=== PATIENT | female | born 1950 | race Caucasian/White ===

== ENCOUNTER → 2019-10-03 13:54 | Outpatient (CLI) | payer MEDICARE, MEDICAID, SELFPAY ==
[2019-10-04 14:02] LABS: COVID19 Sendout Not Detected (Not Detect)
== END ==
PROVIDERS: PCP Family Medicine; Visit Provider Physician Assistant
DX: Z01.812 Encounter for preprocedural laboratory examination (principal)
CPT/HCPCS: 87635

== ENCOUNTER 2019-10-06 07:49 | Inpatient (IN) | payer MEDICARE, MEDICAID, SELFPAY ==
[2019-10-06] VITALS (14 sets, daily range): BP systolic 129–157; BP diastolic 64–95; PULSE 69–92; RESP 8–22; TEMP 35.7–37.1; O2SAT 92–98
--- NOTE | 2019-10-06 | DI.RAD.S_ITS ---
PROCEDURE: XR KNEE RT 1TO2V INDICATIONS: TOTAL RIGHT KNEE TECHNIQUE: 2 view(s) of the knee acquired. COMPARISON: [facility] Jackson, XR KNEE ARTHRITIC SERIES BI, 09/02/2019, 14:53. FINDINGS: Bones: Patient is status post knee joint arthroplasty. Hardware components are in expected positions. Visualized bony structures are intact. Soft tissues: Overlying postoperative changes are noted. IMPRESSION: Postoperative changes as above. Dictated by: Ermelinda Carrasco M.D. on 10/06/2019 at 17:41 Approved by: Ermelinda Carrasco M.D. on 10/06/2019 at 17:42
--- NOTE | 2019-10-06 | DI.RAD.S_ITS ---
PROCEDURE: XR KNEE LT 1TO2V INDICATIONS: LEFT TOTAL KNEE TECHNIQUE: Left view(s) of the knee acquired. COMPARISON: [facility] HEATHER Jackson, XR KNEE ARTHRITIC SERIES BI, 09/02/2019, 14:53. FINDINGS: Bones: Patient is status post knee joint arthroplasty. Hardware components are in expected positions. Visualized bony structures are intact. Soft tissues: Overlying postoperative changes are noted. IMPRESSION: Postoperative changes as above. Dictated by: Ermelinda Carrasco M.D. on 10/06/2019 at 17:41 Approved by: Ermelinda Carrasco M.D. on 10/06/2019 at 17:41
[2019-10-06] MEDS: CELECOXIB 200 MG CAPSULE PO (08:51)
[2019-10-06] MEDS: ACETAMINOPHEN 325 MG TABLET 975 MG PO (08:51)
[2019-10-06] MEDS: LACTATED RINGERS 1,000 ML 42 ML IV ×2 (08:52→12:48)
--- NOTE | 2019-10-06 09:47 | PM.PREOP ---
Pre-operative Note COVID-19 COVID-19 status: Negative Result date/Date tested (Pos, Neg/Pending): 10/03/19 Interval Note History & Physical reviewed/Exam performed by Physician: Yes Changes to H&P: No
--- NOTE | 2019-10-06 09:47 | PM.OP.1 ---
Operative Date/Time/Diagnoses Date of procedure: 10/06/19 Time of procedure: 13:00 Pre-op diagnosis: Bilateral knee osteoarthritis Post-op diagnosis: same Procedure & Clinicians Procedure: Bilateral total knee arthroplasty Same procedure as scheduled: Yes Indications: The patient presents today for total knee arthroplasty after failure of conservative treatment. The nature of the procedure including the risks and benefits, alternatives, postoperative course and expected outcome were discussed and all questions answered. Consent was obtained. Operative site confirmed and marked. Surgeon: Shon Johnston Guest Services Associate: Krishna Vieira Operative Notes Findings: There is approximately 10 degree flexion contracture in both knees prior to surgery. The right knee femoral cut was made at +2. The tibial cut was made approximately 11 mm off the least affected lateral side. The knee balanced nicely with routine osteophyte and soft tissue exposure. A 10 mm polyethylene spacer was utilized. Overall mediolateral balance and patellar tracking was excellent. The left knee femoral cut was also made at +2. Tibial cut was made at just under Che mm off the least affected lateral side. This knee also balanced nicely with routine osteophyte removal and soft tissue exposure. A 10 mm polyethylene spacer was utilized. Overall mediolateral balance and patellar tracking was excellent. Closure Type: primary Specimen(s): none sent Prosthetic devices, grafts, tissues, transplants, or devices: [employer] BCS: Right: 5 femoral component, 4 tibial component, 10 mm BCS polyethylene tray and 32 x 9 mm round patella. Left: 5 femoral component, 3 tibial component, 10 mm BCS polyethylene tray and 32 x 9 mm round patella Applied: implant(s) Estimated Blood Loss (mL): 10 Blood products transfused: none Tourniquet time (min): 48 Procedure in detail: The patient was taken to the operative suite and placed under anesthesia. The patient was given prophylactic antibiotics prior to surgery. The patient was also given tranexamic acid, 1 g, just prior to surgery for postoperative hemostasis. The lateral knee was prepped and the joint injected with 20 mL of 1% Lidocaine with epinephrine. The right knee was then prepped and draped in usual sterile fashion. The leg was exsanguinated with an Esmarch dressing and the tourniquet raised to 250 torr. A 15 cm anterior incision was made. Next a medial trivector arthrotomy was made. The extensor mechanism was marked to ensure accurate repair. Initial exposing dissection was carried out medially and laterally. The knee was then flexed and the intramedullary femoral guide juan f placed. The distal femoral cut was made in 6? of valgus at the +2 position. The femoral size was measured and the appropriate cutting block was then placed and the anterior, posterior and chamfer cuts made. The intramedullary tibial alignment juan f was then placed. The guide was set to remove approximately 11 mm from the less affected lateral side. The proximal tibial cut was then made with an oscillating saw. All meniscus and bony debris was then removed. Posterior femoral osteophytes removed with a curved osteotome. Flexion extension gaps were checked. No specific balancing was required other than routine exposure and removal of osteophytes. The soft tissues were then injected with a combination of 20 mL of half percent Marcaine with epinephrine and 20 mL of Exparel. The trial components were then placed. The knee was then extended and the patellar thickness was measured and a cut made removing approximately 9 mm of bone. The patella was then sized and drilled. Some excess lateral bone was excised and the patellofemoral ligament released. The knee went into full extension and flexion beyond 130?. There was excellent medial-lateral balance throughout motion. Patellar tracking was excellent. The trial components were removed and the knee was cleansed with Pulsavac irrigation and dried. The final components were cemented with high viscosity vacuum mixed bone cement with antibiotics. The joint was filled with a dilute Betadine solution. The knee was held in extension and the patellar clamped until the cement was adequately cured. The knee was then irrigated. The extensor mechanism was closed with 5 interrupted #1 Vicryl sutures and a running Quill suture at approximately 90 degrees of flexion. The joint was then injected with a combination of 1 g of tranexamic acid and 20 mL of quarter percent Marcaine with epinephrine. The subcutaneous tissue was closed with 2 0 Vicryl. The skin was closed with the Zip-Close device.. An Aquacel dressing and Jose wrap were then applied. The identical procedure was then carried out on the left knee. A +2 femoral cut was made on the femur. Slightly less than 11 mm was cut off the least affected tibial side. The knee balanced well with excellent patellar tracking with a 10 mm polyethylene spacer. The patient tolerated the procedure well and was returned to recovery room in good condition. Complications: none Post-operative Condition: stable Disposition: PACU Plan for aftercare: [facility] Protocol.
[2019-10-06] MEDS: CEFAZOLIN 2 GM/100 ML FROZ.PIGGY IV ×2 (10:43→19:08)
[2019-10-06] MEDS: TRANEXAMIC ACID 1,000 MG VIAL 1000 MG IV (11:00)
--- NOTE | 2019-10-06 11:19 | SUR.OPER ---
Supine on padded OR bed. Pillow under head, arms secured on padded arm boards <90 degree abduction. Safety belt across torso. Bilateral legs prepped in field in Jemal positioner. Foam padded brace at thigh of operative leg bilateral .
[2019-10-06] MEDS: BUPIVACAINE 0.25% W/ EPI (PF) 40 ML, BUPIVACAINE LIPOSOME 266 MG, SODIUM CHLORIDE 0.9% ... INJ (11:33)
[2019-10-06] MEDS: BUPIVACAINE 0.25% W/ EPI (PF) 20 ML, TRANEXAMIC ACID 1,000 MG, SODIUM CHLORIDE 0.9% 10 ML INJ (11:35)
[2019-10-06] MEDS: LIDOCAINE 1% W/EPI 20 ML INJ (11:37)
--- NOTE | 2019-10-06 13:46 | SUR.PHASEI ---
1343 Attempted to call report to the floor, patient stable, ready for transfer. Room not available, Acute care will notify PACU when it is ready.
--- NOTE | 2019-10-06 13:52 | SUR.PHASEI ---
1354 Reported to to Jodie Price RN. Pt awake, oriented, stable. Tolerating PO well. Denies pain, states that she feels pressure. Informed her that she has ric wraps on her legs. Very pleasant and appreciative.
[2019-10-06] MEDS: CYCLOBENZAPRINE 10 MG TABLET 20 MG PO (15:05)
[2019-10-06] MEDS: HYDROCODONE/ACET 5/325 TABLET 2 TAB PO ×3 (15:06→23:33)
[2019-10-06] MEDS: HYDROMORPHONE 0.5 MG INJ 0.2 MG IV (16:20)
[2019-10-06] MEDS: IBUPROFEN 400 MG TABLET PO (16:20)
[2019-10-06] MEDS: LACTATED RINGERS 1,000 ML 100 ML IV (16:27)
[2019-10-06] MEDS: HYDROMORPHONE 2 MG TABLET PO ×2 (17:49→21:03)
[2019-10-06] MEDS: PANTOPRAZOLE 20 MG TABLET PO (17:49)
[2019-10-06] MEDS: ASPIRIN EC 81 MG TABLET PO (21:03)
[2019-10-06] MEDS: TRAZODONE 100 MG TABLET 200 MG PO (21:03)
[2019-10-06] MEDS: DOCUSATE 100 MG CAPSULE PO (21:04)
[2019-10-07] MEDS: IBUPROFEN 400 MG TABLET PO ×6 (00:53→21:46)
[2019-10-07] MEDS: HYDROMORPHONE 2 MG TABLET PO ×3 (00:54→10:15)
[2019-10-07] MEDS: CEFAZOLIN 2 GM/100 ML FROZ.PIGGY IV (02:42)
[2019-10-07] MEDS: HYDROCODONE/ACET 5/325 TABLET 2 TAB PO (03:19)
[2019-10-07 03:20] VITALS: BP 158/91; PULSE 84; RESP 18; TEMP 37.4; O2SAT 96
[2019-10-07 05:38] LABS: Hematocrit 32.7 % (36-46)
[2019-10-07] MEDS: LEVOTHYROXINE 50 MCG TABLET PO (05:59)
[2019-10-07] MEDS: LEVOTHYROXINE 100 MCG TABLET 200 MCG PO (05:59)
[2019-10-07 08:00] VITALS: BP 135/62; PULSE 82; RESP 16; TEMP 37.1; O2SAT 94
[2019-10-07] MEDS: CYCLOBENZAPRINE 10 MG TABLET 20 MG PO (08:34)
[2019-10-07] MEDS: ASPIRIN EC 81 MG TABLET PO ×2 (08:36→20:32)
[2019-10-07] MEDS: HYDROCODONE/ACET 5/325 TABLET 1 TAB PO (08:36)
[2019-10-07] MEDS: PANTOPRAZOLE 20 MG TABLET PO (08:37)
[2019-10-07] MEDS: DOCUSATE 100 MG CAPSULE PO ×2 (08:37→20:32)
--- NOTE | 2019-10-07 10:44 | PM.PNPO.1 ---
Subjective Subjective Date Patient Seen: 10/07/19 Time Patient Seen: 10:44 Interval history: Patient's pain is [id number] when resting. Patient has severe right-sided low back pain radiating to the right posterior thigh within the right lower extremity movement. Patient has been up twice to bedside chair yesterday. Patient has not been up yet today. Patient refuses to move out of bed today. Denies fever chills. No nausea vomiting. Patient plans on having her daughter assist her home however she has several stairs to her bedroom. Exam Vital Signs (past 8 hours): - 10/07/19 03:20 10/07/19 08:00 Temperature 99.3 F 98.8 F Pulse Rate 84 82 Respiratory Rate 18 16 Blood Pressure 158/91 H 135/62 Pulse Oximetry 96 94 Oxygen Delivery Method Room Air Oxygen Flow Rate 0 Narrative Exam Narrative: 69-year-old female resting comfortably in bed in no apparent distress. Left knee dressing is clean, dry and intact. Right knee dressing shows some drainage with what appears to be a dime-size dried blood on the distal aspect of the Jose dressing. The Jose is removed entirely and the distal aspect of the dressing is moist but adhering well. Sensation grossly intact to light touch bilateral lower extremities. Motor functions intact bilateral lower extremities. Both legs are warm and dry. Objective Labs Result Diagrams: 10/07/19 05:10 Labs: Laboratory Results - last 24 hr 10/07/19 05:10 Hgb 11.0 L Hct 32.7 L Assessment & Plan Post-op Postoperative Procedures: Procedures Operation Date: 10/06/19 09:45 Actual Procedures Side Surgeon p Total Knee Arthroplasty Bilateral Shon Johnston MD Patient progressing as expected status post bilateral total knee arthroplasties. After a long discussion patient is in agreement with mobilizing with physical therapy this afternoon if her pain is better controlled. The nurse has already talked with Dr. Johnston about increasing her pain meds. The orders have been completed to increase her pain meds. Possible home 1-2 days. Quality VTE Deep Vein Thrombosis/Pulmonary Embolism Present on Admission: No
[2019-10-07 11:00] VITALS: BP 132/63; PULSE 81; RESP 16; TEMP 37; O2SAT 96
[2019-10-07] MEDS: hydrOXYzine pamoate 25 MG CAPSULE 50 MG PO ×3 (11:01→20:33)
--- NOTE | 2019-10-07 11:34 | PT.IIE ---
Current Diagnoses Unilateral primary osteoarthritis, right knee (10/06/19) Unilateral primary osteoarthritis, left knee (10/06/19) Surgery Performed Operation Date: 10/06/19 09:45 Actual Procedures p Total Knee Arthroplasty(Bilateral) - Shon Johnston MD Surgical History (Last Updated 09/28/19 @ 14:28 by Natalie Dent RN) History of bilateral tubal ligation (Acute) History of reversal of tubal ligation (Acute) Hx of appendectomy (Acute) Hx of bilateral oophorectomy (Acute) Hx of breast augmentation (Acute) Hx of hernia repair (Acute) Hx of knee surgery (Acute) Hx of repair of right rotator cuff (Acute) Medical History (Last Updated 09/28/19 @ 14:28 by Natalie Dent RN) Anxiety (Acute) Arthritis (Acute) Chronic vertigo (Acute) Edema (Acute) Fibromyalgia (Acute) GERD (gastroesophageal reflux disease) (Acute) HLD (hyperlipidemia) (Acute) Hx of ectopic (Acute) Hypothyroid (Acute) Meniere's disease (Acute) Numbness (Acute) Osteoarthritis (Acute) Sleep apnea (Acute) TMJ (dislocation of temporomandibular joint) (Acute) Physical Therapy Inpatient Evaluation/Re-Eval M1 PT/OT-IP Prior Functional Status Start: 10/07/19 08:52 Freq: NEEDED Status: Active Protocol: Document 10/07/19 11:05 AW (Rec: 10/07/19 11:34 AW [email or web address]) Medical Review Prior Functional Status Medical History Reviewed Yes Communication WNL. Pt is an effective verbal communicator. Mobility and Gait Pt is typically independent with mobility but has used a hurry cane for the last 2 weeks. This change was precipitated by 3 falls within 1 week. Pt has history of Meniere's disease and fibromyalgia. Activities of Daily Living and IADL's IND per pt, including driving. Social History Household Members spouse Living Arrangements Apartment/Condo Number of Floors (Floors) Two Floors Number of Stairs To Enter/Railing? 33 stairs to second level apartment via outdoor staircase. There are wide bilateral rails. No elevator. Pt states she has arranged for her downstairs neighbors to carry her up the stairs at discharge where she will stay until able to manage stairs. 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 Her nephew and a few roommates live in a downstairs apartment and her , Edd, is currently living there as well. Pt's daughter, Felicia, is planning to stay with the pt at discharge. Pt has an adjustable bed. M2 PT-IP Current Condition Start: 10/07/19 08:52 Freq: NEEDED Status: Active Protocol: Document 10/07/19 11:05 AW (Rec: 10/07/19 11:34 AW [email or web address]) Physical Therapy Current Condition Current Condition Evaluation Date 10/07/19 Treatment Diagnosis B TKA; difficulty in walking Onset Date 10/06/19 Weight Bearing Status Weight Bearing Status Weight Bear as Tolerated M3 PT-IP Subjective Start: 10/07/19 08:52 Freq: NEEDED Status: Active Protocol: Document 10/07/19 11:05 AW (Rec: 10/07/19 11:34 AW [email or web address]) Subjective Physical Therapy Visit Type Type Initial Evaluation Visit Start Time 09:08 Visit Stop Time 09:47 Total Visit Minutes 39 Physical Therapy Visit Comments Patient Comments I'm not getting out of this bed today. Patient Goals Pt plans Therapy Pain Assessment Pain When Pain Assessed At Rest Pain Present Pain Present Pain Reported Location Bilateral Leg Intensity 8 Scale Used 8/10 at rest; 10/10 with bed mobility Pain Management Techniques Elevation,Re-positioning, Timing of Activity with Medications M4 PT-IP Mobility and Gait Start: 10/07/19 08:52 Freq: NEEDED Status: Active Protocol: Document 10/07/19 11:05 AW (Rec: 10/07/19 11:34 AW [email or web address]) PT-Bed Mobility Assessment Rolling Type of Rolling Roll to Right,Roll to Left Level of Assist Moderate Assistance,1 Person Assistance PT-Transfer Assessment Comments Mobility Comments Pt refused all mobility. She allowed this PT to remove the pillows from under her legs but cried out in pain with even light touch, exhibiting hyperesthesia B LE. She complained of back pain and R LE posterior thigh pain she described as sciatica. She firmly stated she would not move out of the bed today. Pt was repositioned with pillows running lengthwise under her calves and lower bed flattened to promote knee extension. RN and PA notified of pt's refusal. Gait Assessment Comments Gait Comments Not assessed. Pt refused. Stair Climbing Assessment Comments Stair Climbing Comments Not assessed. PT-Balance Assessment Comments Other Balance Tests/Deviations/Treatment Unable to assess. : M5 PT-IP Objective Assessments Start: 10/07/19 08:52 Freq: NEEDED Status: Active Protocol: Document 10/07/19 11:05 AW (Rec: 10/07/19 11:34 AW [email or web address]) Orientation Orientation/Cognition Level of Alertness Alert Orientation Name,Day of Week,Place, Situation Language Function Ability No Deficits Noted Safety Awareness Decreased Safety Awareness Comments Pt is verbose and prone to tangential thought/speech. Gross Range of Motion Upper Extremity ROM Assessment Within Functional Limits Lower Extremity ROM Assessment Bilaterally Impaired Impairments Pt lacking ~10 degrees R and ~ 5 degrees L knee extension actively. Strength Lower Extremity Strength Assessment Bilaterally Impaired Hip 3-/5 Ankle 4-/5 Sensation Assessment Sensation Gross Sensation Right LE Impaired,Left LE Impaired Sensation Description Hyperesthesia,Burning Comments Sensation Comments Pt exhibits hyperesthesia with light touch to B LE and reports burning pain posterior R thigh. M6 PT-IP Treatment Start: 10/07/19 08:52 Freq: NEEDED Status: Active Protocol: Document 10/07/19 11:05 AW (Rec: 10/07/19 11:34 AW [email or web address]) Physical Therapy Treatment Exercises Exercises Ankle Pumps,Quad Sets,Heel Slides Education Education Provided Precautions,Weight Bearing Status,Post-Op Packet,Safety Other Treatments Other Treatment Performed Pt able to perform ankle pumps independently, quad sets on L LE only, and heel slides passively with minimal ROM on L LE only. Provided extensive education on risks of immobility. M7 PT-IP Assessment and Plan Start: 10/07/19 08:52 Freq: NEEDED Status: Active Protocol: Document 10/07/19 11:05 AW (Rec: 10/07/19 11:34 AW [email or web address]) PT Summary Assessment and Plan Potential Rehabilitation Potential Poor Status of Condition at Evaluation Evolving Summary Impairments Pain,ROM,Strength,Balance, Sensation,Bed Mobility, Transfers,Gait,Activity Tolerance Assessment Summary Jennifer is a 69 yo woman seen for PT evaluation on POD1 following bilateral TKA. She is planning to have lumbar surgery next month. At baseline, pt has been using a hurry cane for household and short distance community ambulation due to increasing knee pain. On evaluation, pt required mod assist of one for bed mobility and refused to mobilize further with complaints of intense knee, back, and posterior thigh pain . She apparently transferred to the chair with nursing yesterday but states her pain is too great at this time. PT informed RN and PA who are working to encourage the pt to mobilize this PM. Will coordinate with nursing for optimal pain management prior to next session. Pt states she has arranged to be carried up 33 stairs to her apartment but has no plans for follow up appointments or outpatient PT which has not been scheduled. Her daughter, Felicia, is planning to stay with her to assist if pt can safely go home. Pt will require further assessment for discharge recommendation. Goals Bed Mobility Goal Contact Guard Assistance Transfer Goal Contact Guard Assistance,Front Wheeled Walker Gait Goal Contact Guard Assistance,Front Wheel Walker Gait Distance 150 Other Goals - pt will demonstrate safe plan for stair management (33 steps with wide B rails) Days to Meet Goals 10 Frequency of Treatment Frequency Of Treatment Twice a Day Treatment Plan Physical Therapy Treatment Plan Bed Mobility Training,Transfer Training,Gait Training, Therapeutic Exercise,Balance Retraining,Post Op Education, Discharge Planning,Hot or Cold Pack,Neuromuscular Re-ed Other Recommendations and Next Treatment bed mobility, transfers, gait Focus training with FWW Recommendations To Nursing Amount of Assist Needed PT/OT Assist Only Discharge Recommendations PT Discharge Recommendations Home with 24/7 Assist,Home Health Other Discharge Recommendations Home with 24/7 assist for mobility and HH vs OP PT depending on progress Equipment Needed for Home Before FWW, shower chair Discharge
[2019-10-07] MEDS: HYDROMORPHONE 4 MG TABLET PO ×3 (12:47→20:32)
--- NOTE | 2019-10-07 12:57 | CM.DANOTE ---
DCP Assessment: EMR reviewed: Patient is a 69 yr old female who had bilateral TKA done preformed by Dr. Johnston. Patients PCP is Dr Oliver. Cm/RN met with patient at the bedside and explained role. Patient was alert and oriented x3. Patient states she currently lives in a second story apartment with 33 stairs to get into the apartment. When asked patient states she plans on having her exhusband and adult nephew who live in the apartment below her help carry her up the stairs to get into her apartment. Cm/RN asked if patient would be open to SNF at D/C and patient stated she is not okay with that and wants to go home. CM/Rn asked about HH and patient stated that she was okay with that. CM will get F2F signed and clinicals [facility]ed [facility] to [facility] for [facility] to review for HH services. patient wasn't able to get up and ambulate today with PT do to pain but PT will attempt again this afternoon. Patients daughter is coming in to stay with patient on Friday for a week to help with her recovery. Patient states she is Independent with all ADL's and drives [place] [employer]. I: Medicare and medicaid Plan: [facility] when medically [facility]. F2F and clinicals were faxed to [facility] will need D/C summary faxed. Mary Jacobo RN ' Discharge Planning/Care Management CM Discharge Assessment Start: 10/07/19 12:53 Freq: Status: Active Protocol: Document 10/07/19 12:53 HS (Rec: 10/07/19 12:57 HS [id number]) Discharge Planning Assessment Assigned Data Steward Mary Jacobo RN DPOA/Assigned Designee Name Edd Arevalo (ex ) Contact Information [phone] Advance Directives? Yes History Provided By Patient,Medical Record Has Patient been admitted in last 30 No days? Prior Living Arrangements Apartment/Condo Household Members none Comment But does have her ex who lives down stairs and her adult nephew who lives down stairs as well who will be helping patient during recovery. Type of transporation used prior to Drives own vehicle admit Independent with ADL's Yes Is patient alert and oriented? Yes DME Already Rented / Owned FWW / Walker,Cane Patient/Family Preference Home with Home Health Discharge Plan Home with Home Health Community Services Physical Therapy,Occupational Therapy Referrals Initiated Home Health If patient plan is home with home health Yes : Has signed face to face form been completed? Medicare Choice List Provided Yes SNF/HH Preference no preference so weekly calandar chose of [facility] was used. Contact Name/Phone [facility] Whiteboard Updated in Patient Room with Yes name and ext. # of Data Steward Review Status In Process Next Review Type Continued Stay Review Pre-Anesthesia Assessment Start: 09/28/19 13:29 Freq: Status: Active Protocol: Document 09/28/19 13:29 CAB (Rec: 09/28/19 14:58 CAB [id number]) Pre-Anesthesia Assessment Patient Information Reviewed Via Phone Assessment Assessment Completed With Patient Comment Labs/EKG done per pt, needs to schedule COVID screen Primary Care Provider Blanca Oliver Seen Specialist in Last 12 Months Yes Specialist Seen Orthopedist Primary Language Malaysian Stock Holder Required No Height 162.56 cm Weight 79.379 kg Body Mass Index (BMI) 30.0 Hearing Ability Normal Visual Assist Glasses Dentition Type Teeth, Natural Present Barriers to Learning None Hx Anesthesia Reactions Yes: I wake up during surgeries Hx Family Anesthesia Reaction No Hx Malignant Hyperthermia No Hx Blood Transfusions No Anesthesia Review Requested No alcohol intake current alcohol intake frequency a few times a month Smoking Status Never smoker Substance Use Type marijuana Comment States she smokes a lot of marijuana. Advised not to smoke 24hrs prior Pain Present Pain Reported Musculoskeletal Symptoms Abnormal Gait,Back Pain, Difficulty Walking,Joint Pain History of Falling (Recent or History of Yes ) Patient is completely paralyzed or No completely immobile Mental Status Oriented to own ability Is patient on oxygen? 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 No Cardiac Clearance Received Not Applicable Diet Type At Home Ketogenic dysphagia No Gastrointestinal Symptoms Reflux Urinary Catheter Present No Hx Urinary Self Catheterization No Diabetes No Patient No Lactating No Hx Drug Resistant Organism No Presence of External or Internal Medical No Devices Have you had any close contact with No someone diagnosed with COVID-19? Marital Status Lives With spouse Prior Living Arrangements Apartment/Condo Number of Floors (Floors) One Floor Support System Spouse Does the Patient Have Assistance After Yes Surgery Patient Discharge Plan Description Return Home Comment Pt advised 2-3 day length of stay per surgeon Feels Safe in Current Environment Yes Been Physically Hurt or Threatened By a No Person in Current Environment Do you have thoughts of harming yourself None or others? Are you currently considering suicide? No Do you have a plan to hurt yourself or No Plan others? Do You Have Any Spiritual Beliefs That No May Affect Your HC Choices? Do You Have Any Cultural Practices That No May Affect Your HC Choices? Who Can We Speak to About Patient's Care Family, friends Identifying Code for Release of Patient Declines to issue Information Health Care Proxy/Next of Kin Felicia (daughter) Edd (Ex- ) Health Care Proxy Phone Number Felicia: [phone] [facility]: [phone] Emergency Contact Name Felicia (daughter) Edd (Ex- ) Emergency Contact Phone Number Felicia: [phone] Edd: Advance Directives? No Power of Benefits Consulting Analyst No PAC Instructions Do not shave/clip surgical site,Durable medical equipment ,Medications to take/avoid, Nasal antibiotic,No ETOH/ petroleum product on skin DOS, NPO,Pre-surgical wash,Sturdy shoes/comfortable clothes,Do not bring valuables and remove jewelry
--- NOTE | 2019-10-07 14:52 | PT.IPTN ---
Current Diagnoses Unilateral primary osteoarthritis, right knee (10/06/19) Unilateral primary osteoarthritis, left knee (10/06/19) Surgery Performed Operation Date: 10/06/19 09:45 Actual Procedures p Total Knee Arthroplasty(Bilateral) - Shon Johnston MD Physical Therapy Treatment Note M2 PT-IP Current Condition Start: 10/07/19 08:52 Freq: NEEDED Status: Active Protocol: Document 10/07/19 11:05 AW (Rec: 10/07/19 11:34 AW [email or web address]) Physical Therapy Current Condition Current Condition Evaluation Date 10/07/19 Treatment Diagnosis B TKA; difficulty in walking Onset Date 10/06/19 Weight Bearing Status Weight Bearing Status Weight Bear as Tolerated M3 PT-IP Subjective Start: 10/07/19 08:52 Freq: NEEDED Status: Active Protocol: Document 10/07/19 14:25 AW (Rec: 10/07/19 14:51 AW [email or web address]) Subjective Physical Therapy Visit Type Type Treatment Note Visit Start Time 13:48 Visit Stop Time 14:15 Total Visit Minutes 27 Physical Therapy Visit Comments Patient Comments I've been keeping my legs flat like you told me to. Therapy Pain Assessment Pain When Pain Assessed At Rest Pain Present Pain Present Pain Reported Location Bilateral Leg Scale Used pt unwilling to quantify Pain Management Techniques Re-positioning,Timing of Activity with Medications M4 PT-IP Mobility and Gait Start: 10/07/19 08:52 Freq: NEEDED Status: Active Protocol: Document 10/07/19 14:25 AW (Rec: 10/07/19 14:51 AW [email or web address]) PT-Bed Mobility Assessment Supine to Sit Supine to Sit Moderate Assistance,1 Person Assistance,Head of Bed Elevated Scooting Scooting to Edge of Bed Contact Guard Assistance PT-Transfer Assessment Sit to and From Stand Sit to and from Stand Maximum Assistance,1 Person Assistance,Use of Upper Extremities Equipment Transfer Assistive Device Gait Belt,Front Wheeled Walker Transfers Transfer Destination Chair Transfer Technique Stand Step Pivot Transfer Ability Level of Assist Moderate Assistance,1 Person Assistance Comments Mobility Comments Pt continued to complain of severe B LE pain but was calmer this PM and more willing to consider mobility. She was lying with no pillows under her legs. Pt has an adjustable bed at home. With HOB raised ~40 degrees, pt was able to use a wedge pillow under her right thigh to move her right leg toward the right side of the bed with her arms . She followed with her left leg moving without assist. The process was excruciatingly slow but pt was able to get to sitting EOB with mod A x 1 for support of her right leg in order to prevent sudden movement. With bed raised 1.5 inches from lowest position, pt was able to stand max A x 1 using FWW and max cues to straighten her knees and to reach for the walker handles. Pt was able to get her hands on the handles and use her UE for heavy weightbearing to straighten her legs. Once in standing, she was able to shift weight side to side and to take tiny marching steps in place. She then advanced the walker and slid her feet forward to transfer to the chair which was set up 90 degrees from the bed. Pt required max cues to reach back for the chair arms. Stand to sit required mod A x 1 due to poor control of descent. Pt stated she preferred to sit upright in spite and did not care to recline. Pt was positioned on the chair with call light and all needs in reach. Communicated progress to RN and recommended 2PA to transfer. Gait Assessment Gait Gait Assistance Required: Minimum Assistance,1 Person Assist Distance (Feet) 2 Able to Maintain Weight Bearing Status Yes During Gait Gait Deviations General Gait Pattern Antalgic,Decreased Stride Length,Decreased Feet Clearance,Flexed Trunk,Wide Based Gait Comments Gait Comments Pt slides her feet forward, barely clearing the floor. She required min assist to walk 2 feet for transfer with FWW. Stair Climbing Assessment Comments Stair Climbing Comments Not assessed. PT-Balance Assessment Sitting Balance and Reactions Static Sitting Balance Ability Good Dynamic Sitting Balance Ability Fair Standing Balance and Reactions Static Standing Balance Ability Fair Dynamic Standing Balance Ability Poor Device Used FWW M5 PT-IP Objective Assessments Start: 10/07/19 08:52 Freq: NEEDED Status: Active Protocol: Document 10/07/19 11:05 AW (Rec: 10/07/19 11:34 AW [email or web address]) Orientation Orientation/Cognition Level of Alertness Alert Orientation Name,Day of Week,Place, Situation Language Function Ability No Deficits Noted Safety Awareness Decreased Safety Awareness Comments Pt is verbose and prone to tangential thought/speech. Gross Range of Motion Upper Extremity ROM Assessment Within Functional Limits Lower Extremity ROM Assessment Bilaterally Impaired Impairments Pt lacking ~10 degrees R and ~ 5 degrees L knee extension actively. Strength Lower Extremity Strength Assessment Bilaterally Impaired Hip 3-/5 Ankle 4-/5 Sensation Assessment Sensation Gross Sensation Right LE Impaired,Left LE Impaired Sensation Description Hyperesthesia,Burning Comments Sensation Comments Pt exhibits hyperesthesia with light touch to B LE and reports burning pain posterior R thigh. M6 PT-IP Treatment Start: 10/07/19 08:52 Freq: NEEDED Status: Active Protocol: Document 10/07/19 14:25 AW (Rec: 10/07/19 14:51 AW [email or web address]) Physical Therapy Treatment Exercises Exercises Ankle Pumps,Quad Sets,Heel Slides Education Education Provided Weight Bearing Status,Safety Other Treatments Other Treatment Performed Continued to stress the risks of immobility. M7 PT-IP Assessment and Plan Start: 10/07/19 08:52 Freq: NEEDED Status: Active Protocol: Document 10/07/19 14:25 AW (Rec: 10/07/19 14:51 AW [email or web address]) PT Summary Assessment and Plan Potential Rehabilitation Potential Fair Status of Condition at Evaluation Evolving Summary Impairments Pain,ROM,Strength,Balance, Sensation,Bed Mobility, Transfers,Gait,Activity Tolerance Assessment Summary Jennifer was willing to attempt mobility this PM, requiring mod to max assist for bed mobility, standing, and transfer to the chair. Activity tolerance is extremely limited due to pain, but pt showed good effort at this encounter. All movement was very slow and pt does best when allowed to move slowly on her own without feeling rushed. She will continue to benefit from acute rehab and may need SNF rehab at discharge. According to discharge planning, pt is refusing SNF. If pt were to discharge home, she would need PT. Goals Bed Mobility Goal Contact Guard Assistance Transfer Goal Contact Guard Assistance,Front Wheeled Walker Gait Goal Contact Guard Assistance,Front Wheel Walker Gait Distance 150 Other Goals - pt will demonstrate safe plan for stair management (33 steps with wide B rails) Days to Meet Goals 10 Frequency of Treatment Frequency Of Treatment Twice a Day Treatment Plan Physical Therapy Treatment Plan Bed Mobility Training,Transfer Training,Gait Training, Therapeutic Exercise,Balance Retraining,Post Op Education, Discharge Planning,Hot or Cold Pack,Neuromuscular Re-ed Other Recommendations and Next Treatment bed mobility, transfers, gait Focus training with FWW Recommendations To Nursing Amount of Assist Needed 2 Person Assist,3 or More Person Assist Discharge Recommendations PT Discharge Recommendations Home with 24/7 Assist,Home Health,SNF Rehab Other Discharge Recommendations SNF vs home with 24/7 assist and HH Equipment Needed for Home Before FWW, shower chair Discharge
[2019-10-07 15:55] VITALS: BP 126/66; PULSE 91; RESP 16; TEMP 36.8; O2SAT 96
[2019-10-07] MEDS: TRAZODONE 100 MG TABLET 200 MG PO (20:33)
[2019-10-07 21:15] VITALS: BP 136/72; PULSE 88; RESP 18; TEMP 36.6; O2SAT 93
[2019-10-08 00:15] VITALS: BP 120/67; PULSE 91; RESP 20; TEMP 35.8; O2SAT 93
[2019-10-08] MEDS: HYDROCODONE/ACET 5/325 TABLET 2 TAB PO ×2 (00:59→05:58)
[2019-10-08] MEDS: hydrOXYzine pamoate 25 MG CAPSULE 50 MG PO (01:00)
[2019-10-08 03:45] VITALS: BP 133/52; PULSE 94; RESP 16; TEMP 36.1; O2SAT 92
[2019-10-08] MEDS: IBUPROFEN 400 MG TABLET PO ×5 (04:00→20:57)
[2019-10-08] MEDS: HYDROMORPHONE 2 MG TABLET PO (04:01)
[2019-10-08] MEDS: LEVOTHYROXINE 100 MCG TABLET 200 MCG PO (05:57)
[2019-10-08] MEDS: LEVOTHYROXINE 50 MCG TABLET PO (05:58)
[2019-10-08 08:00] VITALS: BP 141/74; PULSE 100; RESP 16; TEMP 37.1; O2SAT 95
[2019-10-08] MEDS: HYDROMORPHONE 4 MG TABLET PO ×3 (08:08→20:54)
[2019-10-08] MEDS: PANTOPRAZOLE 20 MG TABLET PO (08:08)
[2019-10-08] MEDS: CYCLOBENZAPRINE 10 MG TABLET 20 MG PO ×2 (08:08→20:55)
[2019-10-08] MEDS: DOCUSATE 100 MG CAPSULE PO ×2 (08:08→20:54)
[2019-10-08] MEDS: ASPIRIN EC 81 MG TABLET PO ×2 (08:09→20:55)
--- NOTE | 2019-10-08 08:55 | PM.PNPO.1 ---
Subjective Subjective Date Patient Seen: 10/08/19 Time Patient Seen: 08:55 Interval history: The patient is doing better today. Pain is well controlled. She is still having difficulty ambulating and does not feel ready for discharge. Exam Vital Signs (past 8 hours): - 10/08/19 03:45 Temperature 96.9 F L Pulse Rate 94 H Respiratory Rate 16 Blood Pressure 133/52 L Pulse Oximetry 92 Oxygen Delivery Method Room Air Oxygen Flow Rate 0 Narrative Exam Narrative: The dressing is intact. There is moderate dry blood on the right dressing. There is expected swelling. The leg is neurovascularly intact. Objective Labs Result Diagrams: 10/07/19 05:10 Assessment & Plan Post-op Postoperative Procedures: Procedures Operation Date: 10/06/19 09:45 Actual Procedures Side Surgeon p Total Knee Arthroplasty Bilateral Shon Johnston MD Postoperative day: 2 Postoperative status narrative: The patient is doing much better today. She is progressing slowly with her ambulation which is not unexpected S she had both knees replaced the same time and is dealing with chronic sciatica. We will progress her with physical therapy today. Plan discharge to home tomorrow. Time Spent With Patient Time with patient: less than 15 minutes Quality VTE Deep Vein Thrombosis/Pulmonary Embolism Present on Admission: No
--- NOTE | 2019-10-08 10:58 | PT.IPTN ---
Current Diagnoses Unilateral primary osteoarthritis, right knee (10/06/19) Unilateral primary osteoarthritis, left knee (10/06/19) Surgery Performed Operation Date: 10/06/19 09:45 Actual Procedures p Total Knee Arthroplasty(Bilateral) - Shon Johnston MD Physical Therapy Treatment Note M2 PT-IP Current Condition Start: 10/07/19 08:52 Freq: NEEDED Status: Active Protocol: Document 10/07/19 11:05 AW (Rec: 10/07/19 11:34 AW [email or web address]) Physical Therapy Current Condition Current Condition Evaluation Date 10/07/19 Treatment Diagnosis B TKA; difficulty in walking Onset Date 10/06/19 Weight Bearing Status Weight Bearing Status Weight Bear as Tolerated M3 PT-IP Subjective Start: 10/07/19 08:52 Freq: NEEDED Status: Active Protocol: Document 10/08/19 10:34 KS (Rec: 10/08/19 12:01 KS [id number]) Subjective Physical Therapy Visit Type Type Treatment Note Visit Start Time 10:34 Visit Stop Time 10:58 Total Visit Minutes 24 Number of SUPER[employer]OR [employer] Visits 1 Physical Therapy Visit Comments Patient Comments Pt agreeable to work w/ therapy. Therapy Pain Assessment Pain When Pain Assessed At Rest Pain Present Pain Present Pain Reported Location Bilateral Leg Scale Used pt unwilling to quantify Pain Behaviors Calling Out,Facial Grimacing, Guarding,Holding Area,Moaning, Wincing Pain Management Techniques Modification of Treatment,Re- positioning,Timing of Activity with Medications M4 PT-IP Mobility and Gait Start: 10/07/19 08:52 Freq: NEEDED Status: Active Protocol: Document 10/08/19 10:34 KS (Rec: 10/08/19 12:01 KS [id number]) PT-Bed Mobility Assessment Supine to Sit Supine to Sit Moderate Assistance,1 Person Assistance,Head of Bed Elevated Sit to Supine Sit to Supine Minimal Assistance,1 Person Assistance,Head of Bed Elevated Scooting Scooting to Edge of Bed Moderate Assistance PT-Transfer Assessment Transfer Ability Level of Assist Moderate Assistance,1 Person Assistance Comments Mobility Comments Pt in bed upon arrival from therapy. Reviewed LE strengthening exercises including ankle pumps, quad sets, and glute sets. Pt then sup<>sit Mod A w/ cues and HOB elevated. Pt then Mod A for scooting EOB and c/o high level on pain in B knees when scooting to EOB. Pt then c/o of dizziness and requests to lay back down. Pt agreed to attempt stand when dizziness subsided to finish application of pants. Pt unable to extend knees to complete full stand and requests to go back to bed . Pt mod A for sit<>sup and repositioning in bed for BLE. Pt left in bed w/ all needs in reach and SCDs on. M5 PT-IP Objective Assessments Start: 10/07/19 08:52 Freq: NEEDED Status: Active Protocol: Document 10/07/19 11:05 AW (Rec: 10/07/19 11:34 AW [email or web address]) Orientation Orientation/Cognition Level of Alertness Alert Orientation Name,Day of Week,Place, Situation Language Function Ability No Deficits Noted Safety Awareness Decreased Safety Awareness Comments Pt is verbose and prone to tangential thought/speech. Gross Range of Motion Upper Extremity ROM Assessment Within Functional Limits Lower Extremity ROM Assessment Bilaterally Impaired Impairments Pt lacking ~10 degrees R and ~ 5 degrees L knee extension actively. Strength Lower Extremity Strength Assessment Bilaterally Impaired Hip 3-/5 Ankle 4-/5 Sensation Assessment Sensation Gross Sensation Right LE Impaired,Left LE Impaired Sensation Description Hyperesthesia,Burning Comments Sensation Comments Pt exhibits hyperesthesia with light touch to B LE and reports burning pain posterior R thigh. M6 PT-IP Treatment Start: 10/07/19 08:52 Freq: NEEDED Status: Active Protocol: Document 10/08/19 10:34 KS (Rec: 10/08/19 12:01 KS [id number]) Physical Therapy Treatment Exercises Exercises Ankle Pumps,Gluteal Sets,Quad Sets Education Education Provided Weight Bearing Status,Safety Other Treatments Other Treatment Performed Continued to stress the risks of immobility. M7 PT-IP Assessment and Plan Start: 10/07/19 08:52 Freq: NEEDED Status: Active Protocol: Document 10/08/19 10:34 KS (Rec: 10/08/19 12:01 KS [email or web address]) PT Summary Assessment and Plan Potential Rehabilitation Potential Fair Status of Condition at Evaluation Evolving Summary Impairments Pain,ROM,Strength,Balance, Sensation,Bed Mobility, Transfers,Gait,Activity Tolerance Progress Towards Goals Slow Progress due to Pain Assessment Summary Pt continues to need Mod A for bed mobility and needs frequent cues during mobility. Pt c/o high levels of pain and dizziness w/ mobility. Attempted sit<>stand after dizziness subsided, but pt was unable to tolerate d/t pain and requested to get back in bed. Enocuraged pt to mobilize more with therapy this afternoon. At this time, pt is progressing slowly and will require SNF to improve strength and tolerance for activity. Goals Bed Mobility Goal Contact Guard Assistance Transfer Goal Contact Guard Assistance,Front Wheeled Walker Gait Goal Contact Guard Assistance,Front Wheel Walker Gait Distance 150 Other Goals - pt will demonstrate safe plan for stair management (33 steps with wide B rails) Days to Meet Goals 10 Frequency of Treatment Frequency Of Treatment Twice a Day Treatment Plan Physical Therapy Treatment Plan Bed Mobility Training,Transfer Training,Gait Training, Therapeutic Exercise,Balance Retraining,Post Op Education, Discharge Planning,Hot or Cold Pack,Neuromuscular Re-ed Other Recommendations and Next Treatment bed mobility, transfers, gait Focus training with FWW Recommendations To Nursing Amount of Assist Needed 2 Person Assist Discharge Recommendations PT Discharge Recommendations Home with 24/7 Assist,Home Health,SNF Rehab Other Discharge Recommendations SNF vs home with 24/7 assist and HH Equipment Needed for Home Before FWW, shower chair Discharge
[2019-10-08 11:00] VITALS: BP 115/56; PULSE 82; RESP 16; TEMP 36.6; O2SAT 91
--- NOTE | 2019-10-08 14:17 | PT-IP ANOTE ---
Attempted to see pt at 1300 and she refused d/t pain, fatigue, and dizziness. Returned to see pt at 14:10 and she stated she needs to use BSC. Pt unable to tolerate sup<>sit d/t high level of pain in bilat knees R>L. Pt requesting to use bedpan at this time, nursing notified. Encouraged pt to complete LE strengthening and transfer to chair for dinner.
[2019-10-08 16:24] VITALS: BP 113/45; PULSE 91; RESP 16; TEMP 36.7; O2SAT 96
--- NOTE | 2019-10-08 17:51 | PC.NURSE ---
Addendum entered by Maxine Mack R.N. 10/08/19 22:04: Pt requests bedpan from MILK PASTEURIZER. This rewriter and MILK PASTEURIZER reinforce to pt and pt's spouse (who is present in room) desire to see patient get out of bed to bathroom or at least bedside commode. Pt sits at edge of bed and attempts to stand, but states is too painful R knee versus L knee. Bedpan provided and pt medicated for pain. Ice to BL knees as well as position change--removed pillows from under pt's legs. BL LE's now flat in bed. Declines to wear scd's. Bed alarm set for pt safety and explanation to pt and pt's spouse provided. Original Note: Pt snoring with eyes closed lying flat in bed. Rouses easily to movement in room. Rates right knee pain 10. Administered ibuprofen as per emar. BL calf scd's replaced. Palpable pedal pulses BL and pt admits to full sensation to BL LE's. Jose wrap in place to left knee with aquacel exposed to right knee. Right knee aquacel dressing with small amounts spotty drainage. Pt follows commands appropriately, but has difficulty remaining awake. Bed alarm set and pt informed not to attempt out of bed without calling for staff assistance. Pt verbalized understanding.
[2019-10-08 20:18] VITALS: BP 138/70; PULSE 86; RESP 16; TEMP 37; O2SAT 93
[2019-10-08] MEDS: SODIUM CHLORIDE 0.9% FLUSH 10 ML IV (20:58)
[2019-10-08] MEDS: polyethylene glycoL 3350 17 GM POWD.PACK PO (21:07)
[2019-10-08] MEDS: hydrOXYzine pamoate 25 MG CAPSULE PO (23:24)
[2019-10-09] VITALS (7 sets, daily range): BP systolic 109–152; BP diastolic 54–74; PULSE 83–90; RESP 14–20; TEMP 36.2–37.2; O2SAT 93–96
[2019-10-09] MEDS: IBUPROFEN 400 MG TABLET PO ×6 (00:29→20:37)
[2019-10-09] MEDS: HYDROMORPHONE 4 MG TABLET PO ×2 (00:30→05:40)
--- NOTE | 2019-10-09 00:47 | PC.NURSE ---
Addendum entered by Keesha Cano R.N. 10/09/19 06:41: States pain is down to 7/10 in both knees and is very tolerable at this time. Addendum entered by Keesha Cano R.N. 10/09/19 05:49: Slept most of shift. Does state right knee pain is 10/10 and left knee pain is 9/10 this morning so medicated with Dilaudid. SCD's removed per patient request so reminded to ankle wave; verbalizes understanding. Original Note: Patient is alert and oriented. Breath sounds CTA with RA sat of 94%. HRR. Denies nausea. BT present and is passing flatus. Has not had BM since 10/04 but states that is her normal. Voiding per bedpan as is refusing to get up to BSC due to pain in bilateral knees; denies dysuria, frequency or urgency. Is able to move self in bed. At shift change was having bilateral 11/10 knee pain and 8/10 back pain and was medicated with Vistaril and now back pain is resolved. States currently that right knee pain is still 10/10 and left knee is 8/10 so medicated with po Dilaudid and ice packs have been applied. Aquacel dressing to right knee intact with small areas of drainage noted. Aquacel dressing to left knee covered with ric wrap is CDI. CMS is intact except states there is some numbness in right knee. Does have edema bilaterally left > right. Agreeable to having bilateral calf SCD's applied at this time. Fall risk score is high and bed alarm is activated.
[2019-10-09] MEDS: LEVOTHYROXINE 50 MCG TABLET PO (05:40)
[2019-10-09] MEDS: LEVOTHYROXINE 100 MCG TABLET 200 MCG PO (05:40)
--- NOTE | 2019-10-09 09:44 | P.DS_ITS ---
History of Present Illness History of Present Illness Date Patient Seen: 10/09/19 Time Patient Seen: 09:44 Chief complaint: Bilat TKA Narrative: The patient presents today for total knee arthroplasty after failure of conservative treatment. The nature of the procedure including the risks and benefits, alternatives, postoperative course and expected outcome were discussed and all questions answered. Consent was obtained. Operative site confirmed and marked. Discharge Providers Provider Date of admission: 10/06/19 07:49 Discharge Date: 10/09/19 Primary care physician: Blanca Oliver Consults: 10/06/19 14:50 Consult to Discharge Planning Routine Comment: Consult to Physical Therapy Evaluate & Treat Comment: Physician Instructions: postop TKA protocol Consult to Respiratory Therapy Evaluate & Treat Comment: Physician Instructions: Evaluate and treat Discharge provider: Ana Polanco PA-C Summary Hospital Course Discharge Diagnosis: s/p bilateral total knee arthroplasty Sleep apnea Peptic ulcer MS Many years disease Hypothyroidism Hyperlipidemia Migraines Fibromyalgia Back Pain Arthritis Hospital Course: Jennifer admitted for bilateral total knee arthroplasties with Dr. Johnston. She had pain control issues initially after surgery and was slow to mobilize due to this. On postop day 3 patient was ready to discharge home with home health. She is eating and voiding without difficulty or assistance. ASA for DVT prophylaxis. She worked with physical therapy throughout her stay. She has her home set up. Status at Discharge Functional status at discharge: uses cane/walker Exam Vital Signs (past 8 hours): - 10/09/19 05:49 10/09/19 09:17 Temperature 97.7 F 98.3 F Pulse Rate 85 83 Respiratory Rate 18 14 Blood Pressure 109/54 L 124/74 Pulse Oximetry 96 93 Oxygen Delivery Method Room Air Oxygen Flow Rate 0 Narrative Exam Narrative: Patient lying in bed in no acute distress. She is alert and oriented x3. Calves are soft, compressible, nontender bilaterally. Right knee has shot of drainage recommending change dressing prior to discharge. Left knee still has Jose wrap in place and left dressing has minimal shadow drainage. She is able to actively dorsiflex and plantar flex. Sensation intact light touch throughout bilateral lower extremities. She is doing much better this morning. And was able to do a lot of active range of motion in bed this morning. Objective Labs Result Diagrams: 10/07/19 05:10 Discharge Plan Discharge Plan Patient Disposition: Home Health Service Transfer to: [facility] Discharge orders & Medications Prescriptions: New cyclobenzaprine 10 mg Tablet 20 mg PO BID PRN (Reason: Pain, muscle spasm) Qty: 40 RF: 0 aspirin 81 mg Tablet,Delayed Release (Dr/Ec) 81 mg PO BID Qty: 60 RF: 0 hydromorphone 2 mg Tablet 2 mg PO Q4-6H PRN (Reason: Pain, Severe (7-10)) Qty: 60 RF: 0 docusate sodium [DOK] 100 mg Capsule 100 mg PO BID Qty: 60 RF: 0 hydroxyzine pamoate 25 mg Capsule 25 mg PO Q6-8H PRN (Reason: Spasms) Qty: 30 RF: 0 ibuprofen 400 mg Tablet 400 mg PO Q4HR Qty: 60 RF: 0 Continued trazodone 100 MG tablet 200 mg PO HS Qty: 0 RF: 0 levothyroxine 200 MCG tablet 200 mcg PO QAM Qty: 0 RF: 0 omeprazole 20 MG capsule,delayed release(DR/EC) 20 mg PO QDAY PRN (Reason: GERD) Qty: 0 RF: 0 levothyroxine 50 mcg Capsule 50 mcg PO DAILY RF: 0 furosemide 20 mg Tablet 20 mg PO DAILY PRN (Reason: Edema) RF: 0 Discontinued cyclobenzaprine 10 MG tablet 20 mg PO BID PRN (Reason: Pain, muscle spasm) Qty: 0 RF: 0 Tylenol-Codeine #4 60 mg 120 mg PO BID PRN (Reason: Pain) RF: 0 Follow up/Referrals: Shon Johnston MD [Physician] - 2 Weeks Blanca Oliver [Primary Care Provider] - Diet/Activity/Treatments Diet: Regular Activity: Activity and weight-bearing as tolerated. Daily knee range of motion. Cold/Heat Therapy: May ice the knees for 20 minutes at a time as needed. Skin/Wound/Dressing Care Report to your healthcare provider any signs of infection, such as:: chills, fever, increased pain, unusual drainage and unusual redness Dressing: May leave dressings in place. May shower over the dressing. Leave knee closure device on skin until follow-up. Visit Report/Discharge Packet Instructions: DI for Knee Replacement Discharge Data Primary Care Provider: Blanca Oliver Quality VTE Deep Vein Thrombosis/Pulmonary Embolism Present on Admission: No
[2019-10-09] MEDS: SODIUM CHLORIDE 0.9% FLUSH 10 ML IV ×2 (09:51→20:38)
[2019-10-09] MEDS: PANTOPRAZOLE 20 MG TABLET PO (09:51)
[2019-10-09] MEDS: ASPIRIN EC 81 MG TABLET PO ×2 (09:51→20:37)
[2019-10-09] MEDS: DOCUSATE 100 MG CAPSULE PO ×2 (09:51→20:37)
[2019-10-09] MEDS: CYCLOBENZAPRINE 10 MG TABLET 20 MG PO (10:49)
--- NOTE | 2019-10-09 11:38 | PT.IPTN ---
Current Diagnoses Unilateral primary osteoarthritis, right knee (10/06/19) Unilateral primary osteoarthritis, left knee (10/06/19) Surgery Performed Operation Date: 10/06/19 09:45 Actual Procedures p Total Knee Arthroplasty(Bilateral) - Shon Johnston MD Physical Therapy Treatment Note M2 PT-IP Current Condition Start: 10/07/19 08:52 Freq: NEEDED Status: Active Protocol: Document 10/07/19 11:05 AW (Rec: 10/07/19 11:34 AW [id number]) Physical Therapy Current Condition Current Condition Evaluation Date 10/07/19 Treatment Diagnosis B TKA; difficulty in walking Onset Date 10/06/19 Weight Bearing Status Weight Bearing Status Weight Bear as Tolerated M3 PT-IP Subjective Start: 10/07/19 08:52 Freq: NEEDED Status: Active Protocol: Document 10/09/19 11:15 KS (Rec: 10/09/19 12:29 KS [id number]) Subjective Physical Therapy Visit Type Type Treatment Note Visit Start Time 11:15 Visit Stop Time 11:38 Total Visit Minutes 23 Number of MARKETING INTELLIGENCE MANAGER Visits 2 Physical Therapy Visit Comments Patient Comments Pt agreeable to work w/ therapy. Therapy Pain Assessment Pain When Pain Assessed During Mobility Pain Present Pain Present Pain Reported Location Bilateral Knee Scale Used no number given Description Sharp,Stabbing Pain Behaviors Calling Out,Facial Grimacing, Guarding,Holding Area,Moaning, Restlessness,Wincing Pain Management Techniques Elevation,Modification of Treatment,Re-positioning, Timing of Activity with Medications M4 PT-IP Mobility and Gait Start: 10/07/19 08:52 Freq: NEEDED Status: Active Protocol: Document 10/09/19 11:15 KS (Rec: 10/09/19 12:29 KS [id number]) PT-Bed Mobility Assessment Sit to Supine Sit to Supine Moderate Assistance,1 Person Assistance,Head of Bed Elevated PT-Transfer Assessment Sit to and From Stand Sit to and from Stand Maximum Assistance,1 Person Assistance,2 Person Assistance ,Use of Upper Extremities Equipment Transfer Assistive Device Gait Belt,Front Wheeled Walker Orthotic/Prosthetic Devices or Brace: No Transfers Transfer Destination Bedside Commode Transfer Technique Stand Step Pivot Transfer Ability Level of Assist Moderate Assistance,Maximum Assistance,2 Person Assistance ,Use of Upper Extremities Comments Mobility Comments Pt sitting EOB w/ RN upon arrival from therapy in preparation to use BSC. Pt c/ o of high pain in R knee. Pt Max A x2 and max cues for sit< >stand from bed and stand step pivot to BSC w/ FWW. Pt unable to fully extend knees at this time and requires max cues for sequencing and FWW management. After using BSC, pt Mod to Max A x2 for sit<> stand and Mod A for stand step pivot to sit on bed. Pt had some improvement w/ knee extension on second stance. Pt Mod A for sit<>sup back in bed and repositioning LE. Then reviewed LE strengthening exercises including ankle pumps, quad sets, and SLR. EXECUTIVE SALES ASSISTANT arrived to discuss d/c planning. Gait Assessment Gait Gait Assistance Required: Moderate Assistance,Maximum Assistance,2 Person Assist Distance (Feet) 2 Able to Maintain Weight Bearing Status Yes During Gait Gait Deviations General Gait Pattern Antalgic,Decreased Stride Length,Decreased Feet Clearance,Flexed Trunk,Wide Based Gait Comments Gait Comments Pt only able to tolerate stand step pivot to and from BSC at this time d/t pain, weakness, and decreased ROM in bilateral knees. Stair Climbing Assessment Comments Stair Climbing Comments Not assessed. PT-Balance Assessment Sitting Balance and Reactions Static Sitting Balance Ability Good Dynamic Sitting Balance Ability Fair Standing Balance and Reactions Static Standing Balance Ability Poor Dynamic Standing Balance Ability Poor Device Used FWW M5 PT-IP Objective Assessments Start: 10/07/19 08:52 Freq: NEEDED Status: Active Protocol: Document 10/07/19 11:05 AW (Rec: 10/07/19 11:34 AW [email or web address]) Orientation Orientation/Cognition Level of Alertness Alert Orientation Name,Day of Week,Place, Situation Language Function Ability No Deficits Noted Safety Awareness Decreased Safety Awareness Comments Pt is verbose and prone to tangential thought/speech. Gross Range of Motion Upper Extremity ROM Assessment Within Functional Limits Lower Extremity ROM Assessment Bilaterally Impaired Impairments Pt lacking ~10 degrees R and ~ 5 degrees L knee extension actively. Strength Lower Extremity Strength Assessment Bilaterally Impaired Hip 3-/5 Ankle 4-/5 Sensation Assessment Sensation Gross Sensation Right LE Impaired,Left LE Impaired Sensation Description Hyperesthesia,Burning Comments Sensation Comments Pt exhibits hyperesthesia with light touch to B LE and reports burning pain posterior R thigh. M6 PT-IP Treatment Start: 10/07/19 08:52 Freq: NEEDED Status: Active Protocol: Document 10/09/19 11:15 KS (Rec: 10/09/19 12:29 KS [id number]) Physical Therapy Treatment Exercises Exercises Ankle Pumps,Quad Sets,Straight Leg Raises Education Education Provided Weight Bearing Status,Post-Op Packet,Safety Other Treatments Other Treatment Performed Discussed d/c planning. M7 PT-IP Assessment and Plan Start: 10/07/19 08:52 Freq: NEEDED Status: Active Protocol: Document 10/09/19 11:15 KS (Rec: 10/09/19 12:29 KS [id number]) PT Summary Assessment and Plan Potential Rehabilitation Potential Fair Status of Condition at Evaluation Evolving Summary Impairments Pain,ROM,Strength,Balance, Sensation,Bed Mobility, Transfers,Gait,Activity Tolerance Progress Towards Goals Slow Progress due to Pain Assessment Summary Pt Mod A for bed mobility. Able to tolerate stand step pivot transfer to [facility], but requires Mod to Max A x2 for sit<>stand and transfer. Pt also requires frequent cues for sequencing and FWW management. Pt still experiencing and is limited by high level of pain. Pt is not safe to return home at this time and will require SNF to improve strength, mobility, and ambulation. Goals Bed Mobility Goal Contact Guard Assistance Transfer Goal Contact Guard Assistance,Front Wheeled Walker Gait Goal Contact Guard Assistance,Front Wheel Walker Gait Distance 150 Other Goals - pt will demonstrate safe plan for stair management (33 steps with wide B rails) Days to Meet Goals 10 Frequency of Treatment Frequency Of Treatment Twice a Day Treatment Plan Physical Therapy Treatment Plan Bed Mobility Training,Transfer Training,Gait Training, Therapeutic Exercise,Balance Retraining,Post Op Education, Discharge Planning,Hot or Cold Pack,Neuromuscular Re-ed Other Recommendations and Next Treatment bed mobility, transfers, gait Focus training with FWW Recommendations To Nursing Amount of Assist Needed 2 Person Assist Discharge Recommendations PT Discharge Recommendations SNF Rehab Transportation Needs at Discharge Wheelchair/Cabulance
--- NOTE | 2019-10-09 12:44 | CM.DPNOTE ---
Addendum entered by JESSICA Irizarry 10/09/19 13:51: [facility] can accept for admission Friday, rapid COVID-19 test ordered today in preparation. PASRR completed. Faxed SNF referral to [facility] as b/u plan in case [facility] unable to accept Friday. TAN Arredondo updated by PENNY Warner. EMERALD Original Note: DCP Cont Now attempting SNF per recommendation from therapy team and Ortho PA. Patient agreeable and requests a SNF close to home in [place]. Placed call to [facility] will check on bed availability today and tomorrow. Following closely. Hopeful to coordinate SNF upon DC as patient is recovering from bilateral knee replacements and has not arranged the proper assist upon return home EMERALD
--- NOTE | 2019-10-09 13:15 | PC.NURSE ---
Addendum entered by Alana Negron R.N. 10/09/19 15:00: Checked on patient at this time, patient is resting with eyes closed, breathing nonlabored. Addendum entered by Alana Negron R.N. 10/09/19 14:26: Patient very sleepy but able to arouse. Up to BSC, able to void. Prefers to go back to bed, refused ice for knees, states pain is 8/10 but appears to fall asleep during conversation. Belongings in reach, patient denies further needs at this time. Original Note: Patient A/Ox4, resting in bed this morning, reports her bilateral sx pain is being adequately managed but has LLE pain r/t sciatic. Dressings are intact bilaterally, shadow drainage noted. Per MD order, attempted to change the RLE aquacel dsg first but the zip dsg underneath appeared to be stuck to the aquacel, so discontinued change and reinforced with tagnancym. Left not attempted. No warmth, erythema or streaking noted bilaterally. Pulses equal bilaterally. Lungs clear, no SOB noted. Patient denies dizziness or chest pain. IV is patent, saline locked. DECORATIVE ENGRAVER APPRENTICE and this RN assisted patient to BSC. Patient unable to stand without maximum assist, verbalized pain r/t sciatic nerve. Discussed planned discharge with patient, emphasized there may be need for rehab if patient is unable to stand or ambulate at this time. Patient receptive. PA contacted, discharge cancelled. Will plan for placement in [place]. Family notified.
--- NOTE | 2019-10-09 14:15 | PT-IP ANOTE ---
Pt refused therapy x2 this afternoon, reported feelings of pain, fatigue, and dizziness. Pt requested pillow under legs and expressed increased pain w/ movement of BLE for placement.
[2019-10-09 15:04] LABS: COVID19 -Nasal RAPID Negative (Negative)
[2019-10-09] MEDS: HYDROMORPHONE 2 MG TABLET PO (20:37)
--- NOTE | 2019-10-09 22:40 | PC.NURSE ---
Assumed care of pt at 1500. Pt resting in bed during bedside hand-off. Pt reports feeling foggy from medications given. States she wants to avoid taking any analgesics unless pain level is unbearable. Unable to get oob this evening and only used bedpan for toileting. Medicated with Dilaudid 2 mg PO at approx 2030. After approx 1.5 hrs pt reports she feels confused and fuzzy headed. Ice packs applied to bilateral knees and back. Supportive spouse at bedside rooming in for the night.
--- NOTE | 2019-10-10 00:03 | PC.NURSE ---
Addendum entered by Keesha Cano R.N. 10/10/19 05:57: Patient able to sleep intermittently and noted to be snoring when checked. This morning again tearful but states pain is 8/10 in right knee and 7/10 in left knee. Patient had removed the ric wrap from left knee at sometime during the night. States the pain in her left knee is tolerable but not in the right. Additionally complains of sciatic pain. Is being assisted to [facility] by spouse who does an almost total lift of patient from bed to commode and back. No further hallucinations and denies fogginess or fuzziness. Medicated for pain with Ibuprofen + Flexeril and warm blankets applied to knees as was tried earlier and did help to provide some relief. Addendum entered by Keesha Cano R.N. 10/10/19 00:59: Patient now crying due to 10/10 pain so medicated with Ibuprofen + Vistaril but unwilling to take Dilaudid or Vicodin due to side effects. Does have order for Tylenol #4 which is patient's own home med so spouse left to go home to bring her pain medication in. Original Note: Patient is alert and oriented. Breath sounds CTA with RA sat of 96%. HRR. Denies nausea. BT present and is passing flatus; no BM since 10/04 and declines further intervention at this time. Voiding on bedpan during night as not wanting to get up due to knee pain; denies dysuria, frequency or urgency. Is able to move self in bed. States bilateral knee pain is 9/10 but declines medication at this time as has been hearing voices and feels foggy and fuzzy. Has had ice packs to knees. Refusing SCD's at present time due to knee discomfort so reminded to be ankle waving and patient verbalizes understanding. Aquacel dressing to right knee is intact with scattered spots of drainage. Aquacel covered with ric wrap to left knee is CDI. CMS intact except states she has some numbness bilaterally but sensation is intact. Edema bilateral LE left > right. Fall risk score is high and bed alarm is activated.
[2019-10-10] MEDS: IBUPROFEN 400 MG TABLET PO ×3 (00:50→09:00)
[2019-10-10] MEDS: hydrOXYzine pamoate 25 MG CAPSULE 50 MG PO (00:55)
[2019-10-10] MEDS: CYCLOBENZAPRINE 10 MG TABLET 20 MG PO (05:34)
[2019-10-10] MEDS: LEVOTHYROXINE 50 MCG TABLET PO (05:35)
[2019-10-10] MEDS: LEVOTHYROXINE 100 MCG TABLET 200 MCG PO (05:35)
[2019-10-10 08:00] VITALS: BP 123/68; PULSE 82; RESP 16; TEMP 36.2; O2SAT 93
--- NOTE | 2019-10-10 08:12 | PM.PNPO.1 ---
Subjective Subjective Date Patient Seen: 10/10/19 Time Patient Seen: 08:13 Interval history: Patient is status post bilateral knee arthroplasties. Patient was unable to discharge home yesterday. Patient states that she is not having any knee pain hits her lower back and sciatic about giving her some issues with mobilization. Patient states that she is doing better today and would like to go home today. Still needs quite a bit of assistance from her for ambulation. Exam Vital Signs (past 8 hours): Oxygen Delivery Method Room Air Oxygen Flow Rate 0 Narrative Exam Narrative: Bilateral and knee incisions are clean dry and intact. Positive dorsiflexion and plantar flexion of the toes and ankles. 5/5 dorsiflexion and plantar flexion as well as extensor hallucis longus. Nontender to palpation over the posterior aspect of both calves. Objective Labs Result Diagrams: 10/07/19 05:10 Labs: Laboratory Results - last 24 hr 10/09/19 13:35 COVID-19 PCR Negative Assessment & Plan Post-op Postoperative Procedures: Procedures Operation Date: 10/06/19 09:45 Actual Procedures Side Surgeon p Total Knee Arthroplasty Bilateral Shon Johnston MD Postoperative day: 4 Postoperative status: doing well Postoperative plan: discharge Postoperative plan narrative: Patient will be discharged home today. Patient will be set up with home healthcare. Time Spent With Patient Time with patient: less than 15 minutes Quality VTE Deep Vein Thrombosis/Pulmonary Embolism Present on Admission: No
[2019-10-10] MEDS: DOCUSATE 100 MG CAPSULE PO (09:00)
[2019-10-10] MEDS: ASPIRIN EC 81 MG TABLET PO (09:00)
[2019-10-10] MEDS: SODIUM CHLORIDE 0.9% FLUSH 10 ML IV (09:02)
[2019-10-10] MEDS: PANTOPRAZOLE 20 MG TABLET PO (09:02)
[2019-10-10] MEDS: hydrOXYzine pamoate 25 MG CAPSULE PO (09:06)
[2019-10-10] MEDS: polyethylene glycoL 3350 17 GM POWD.PACK PO (09:07)
--- NOTE | 2019-10-10 10:37 | PC.NURSE ---
Patient A/O x4. Cooperative. Spoke at length with patient regarding rehab this morning. Patient is unable to transfer from bed to BSC without her lifting her. Explained the complications that could arise if they continue to do that at home. Patient and receptive to continuing rehab in [place]. Dsg's are intact bilaterally, reinforced with tegaderm on the RLE. Approx 30% of each dsg has shadow drainage. Patient c/o 9/10 pain. Personal Tylenol #4 sent and verified by pharmacy, administered to patient. Patient c/o feeling woozy, zofran administered, wet washcloth provided. Pt is up to BSC with 2p assist using the FWW, gait belt. Patient voiding, flatus present but no BM. IV removed for D/C. Patient tolerated well. Patient up to chair, awaiting transport. Patient and appear in much better spirits regarding discharge, visited rehab facility this morning and both are eager to continue care there.
[2019-10-10] MEDS: ONDANSETRON 4 MG ODT PO (10:53)
[2019-10-10] MEDS: TYLENOL CODEINE 120 EACH PO (11:03)
--- NOTE | 2019-10-10 11:13 | CM.DPC ---
DCP continued:EMR reviewed: The Charge nurse came to ANDRÉS/RN to express concern. Patient had changed her mind about going to SNF at D/C and was back to wanting to go home with HH services. Andrés/RN met with patient at the bedside and explained role. ANDRÉS/RN explained at length the concerns of the nursing and therapy staff about her D/C home with bilateral TKA;s done. Patient is not currently participating very well with PT and is utilizing her significant other to lift her and move her around rather than standing and working to move her legs. Patient stated understanding but is worried about current COVID-19 issues in SNF. ANDRÉS/RN explained how SNF are working very hard to avoid Covid within their facilities by testing everyone prior to admission as well as after admission. They test staff weekly and are monitoring patients and family visitors closely. Patient seemed more comfortable and patients significant other went and toured around [facility] and agreed that this will be a D/C plan. ANDRÉS/Nicolás called Cecilia at [facility] and she set up a Cabulance for patient transfer at 11am. Patient, family, nursing and BROKE HANDLER notified. ANDRÉS/Rn faxed copy of D/C summary, medication list, D/C order, PASRR and COVID 19 results to [facility] for review. Copy of PASRR placed into green folder on [facility] Idalia's desk to scan into the patients record and original placed in D/C packet to go with patient to [facility]. Nurse report number is [phone] and nurse Jessa will be taking report. nurse notified. Mary Jacobo RN
--- NOTE | 2019-10-10 11:36 | PC.NURSE ---
Day Shift- Cabulance transport present upon discharge to take pt to SNF. Pt's present in room. States has all belongings upon discharge. Pt left unit stating thanks and a little teary. Left unit at 1123 in no distress with cabulance personnel and pt's at side with pts belongings.
--- NOTE | 2019-10-10 11:47 | PT.IPTN ---
Current Diagnoses Unilateral primary osteoarthritis, right knee (10/06/19) Unilateral primary osteoarthritis, left knee (10/06/19) Surgery Performed Operation Date: 10/06/19 09:45 Actual Procedures p Total Knee Arthroplasty(Bilateral) - Shon Johnston MD Physical Therapy Treatment Note M2 PT-IP Current Condition Start: 10/07/19 08:52 Freq: NEEDED Status: Discharge Protocol: Document 10/07/19 11:05 AW (Rec: 10/07/19 11:34 AW [id number]) Physical Therapy Current Condition Current Condition Evaluation Date 10/07/19 Treatment Diagnosis B TKA; difficulty in walking Onset Date 10/06/19 Weight Bearing Status Weight Bearing Status Weight Bear as Tolerated M3 PT-IP Subjective Start: 10/07/19 08:52 Freq: NEEDED Status: Discharge Protocol: Document 10/10/19 11:36 AW (Rec: 10/10/19 11:47 AW [id number]) Subjective Physical Therapy Visit Type Type Treatment Note Visit Start Time 10:45 Visit Stop Time 11:20 Total Visit Minutes 25 Notes split visit to assist with wheelchair transfer at d/c Number of IGNITION SPECIALIST Visits 0 Physical Therapy Visit Comments Patient Comments Pt agreeable to work w/ therapy. Therapy Pain Assessment Pain When Pain Assessed During Mobility Pain Present Pain Present Pain Reported Location Bilateral Knee Intensity 9 Pain Management Techniques Re-positioning,Timing of Activity with Medications M4 PT-IP Mobility and Gait Start: 10/07/19 08:52 Freq: NEEDED Status: Discharge Protocol: Document 10/10/19 11:36 AW (Rec: 10/10/19 11:47 AW [id number]) PT-Transfer Assessment Sit to and From Stand Sit to and from Stand Maximum Assistance,1 Person Assistance,Use of Upper Extremities Equipment Transfer Assistive Device Gait Belt,Front Wheeled Walker Orthotic/Prosthetic Devices or Brace: No Transfers Transfer Destination Chair,Wheelchair,Bedside Commode Transfer Technique Stand Step Pivot Transfer Ability Level of Assist Maximum Assistance,1 Person Assistance,Use of Upper Extremities Comments Mobility Comments Pt sitting EOB with TECHNICAL SALES DIRECTOR upon PT arrival. PT assisted pt with transfer to BSC max A x 1 and max cues to use her arms on the transfer surfaces instead of on the FWW. Pt then transferred to the chair max A x 1 after voiding requiring max cues for hip extension and to avoid looking at the floor . PT left and then returned when SNF transport arrived. Assisted pt to transfer chair > w/c max A x 1 with max cues again for hip extension. Pt was pushed out of the unit by SNF transport. Gait Assessment Gait Gait Assistance Required: Moderate Assistance,1 Person Assist Distance (Feet) 4 Able to Maintain Weight Bearing Status Yes During Gait Gait Deviations General Gait Pattern Antalgic,Decreased Stride Length,Decreased Feet Clearance,Flexed Trunk,Wide Based Gait Factors Limiting Gait Function Factors Limiting Gait Function Decreased Activity Tolerance, Decreased Sensation,Decreased Strength,Difficulty Following Directions,Limited Range of Motion,Pain,Poor Balance,Poor Safety Awareness Comments Gait Comments Pt did ambulate ~4 feet chair to w/c with mod A x 1. She was able to minimally clear her feet from the floor which was an improvement compared with initial eval when she slid her feet along the floor. Stair Climbing Assessment Comments Stair Climbing Comments Not assessed. PT-Balance Assessment Sitting Balance and Reactions Static Sitting Balance Ability Good Dynamic Sitting Balance Ability Fair Standing Balance and Reactions Static Standing Balance Ability Fair Dynamic Standing Balance Ability Fair Device Used FWW M5 PT-IP Objective Assessments Start: 10/07/19 08:52 Freq: NEEDED Status: Discharge Protocol: Document 10/07/19 11:05 AW (Rec: 10/07/19 11:34 AW [id number]) Orientation Orientation/Cognition Level of Alertness Alert Orientation Name,Day of Week,Place, Situation Language Function Ability No Deficits Noted Safety Awareness Decreased Safety Awareness Comments Pt is verbose and prone to tangential thought/speech. Gross Range of Motion Upper Extremity ROM Assessment Within Functional Limits Lower Extremity ROM Assessment Bilaterally Impaired Impairments Pt lacking ~10 degrees R and ~ 5 degrees L knee extension actively. Strength Lower Extremity Strength Assessment Bilaterally Impaired Hip 3-/5 Ankle 4-/5 Sensation Assessment Sensation Gross Sensation Right LE Impaired,Left LE Impaired Sensation Description Hyperesthesia,Burning Comments Sensation Comments Pt exhibits hyperesthesia with light touch to B LE and reports burning pain posterior R thigh. M6 PT-IP Treatment Start: 10/07/19 08:52 Freq: NEEDED Status: Discharge Protocol: Document 10/10/19 11:36 AW (Rec: 10/10/19 11:47 AW [id number]) Physical Therapy Treatment Education Education Provided Weight Bearing Status,Safety M7 PT-IP Assessment and Plan Start: 10/07/19 08:52 Freq: NEEDED Status: Discharge Protocol: Document 10/10/19 11:36 AW (Rec: 10/10/19 11:47 AW [id number]) PT Summary Assessment and Plan Potential Rehabilitation Potential Fair Status of Condition at Evaluation Evolving Summary Impairments Pain,ROM,Strength,Balance, Sensation,Bed Mobility, Transfers,Gait,Activity Tolerance Progress Towards Goals Slow Progress due to Pain Assessment Summary Pt moving with more fluidity at this encounter but continues to be limited by pain in sciatic nerve distribution. Pt requires SNF rehab. Goals Bed Mobility Goal Contact Guard Assistance Transfer Goal Contact Guard Assistance,Front Wheeled Walker Gait Goal Contact Guard Assistance,Front Wheel Walker Gait Distance 150 Other Goals - pt will demonstrate safe plan for stair management (33 steps with wide B rails) Days to Meet Goals 10 Frequency of Treatment Frequency Of Treatment Twice a Day Treatment Plan Physical Therapy Treatment Plan Bed Mobility Training,Transfer Training,Gait Training, Therapeutic Exercise,Balance Retraining,Post Op Education, Discharge Planning,Hot or Cold Pack,Neuromuscular Re-ed Recommendations To Nursing Amount of Assist Needed 1 Person Assist Discharge Recommendations PT Discharge Recommendations SNF Rehab Equipment Needed for Home Before defer to rehab setting Discharge Transportation Needs at Discharge Wheelchair/Cabulance
== END 2019-10-10 11:23 | DRG 462 ==
LOC: OR 09:49 → AC 10-07 12:37
PROVIDERS: Admitting Provider Orthopaedic Surgery; PCP Family Medicine; Referring Provider Orthopaedic Surgery; Visit Provider Orthopaedic Surgery
PROC: 0SRC0JZ Replacement of Right Knee Joint with Synthetic Substitute, Open Approach (ICD-10-PCS; CPT 27447; principal; 2019-10-06 09:45)
DX: M17.0 Bilateral primary osteoarthritis of knee (principal); G47.33 Obstructive sleep apnea (adult) (pediatric); G35 Multiple sclerosis; H81.09 Meniere's disease, unspecified ear; E03.9 Hypothyroidism, unspecified; E78.5 Hyperlipidemia, unspecified; F41.9 Anxiety disorder, unspecified; M79.7 Fibromyalgia; M54.30 Sciatica, unspecified side; Z01.812 Encounter for preprocedural laboratory examination; Z11.59 Encounter for screening for other viral diseases
CPT/HCPCS: 36415; 73560; 85014; 85018; 87635; 97110; 97162; 97530; C1776; C9290; J0690; J1100; J1170; J2250; J2405; J2704; J3010

== ENCOUNTER → 2019-11-06 09:36 | Outpatient (CLI) | payer MEDICARE, MEDICAID, SELFPAY ==
[2019-11-08 01:36] LABS: COVID19 Sendout Not Detected (Not Detect)
== END ==
PROVIDERS: PCP Family Medicine; Visit Provider Nurse Practitioner
DX: Z11.59 Encounter for screening for other viral diseases (principal)
CPT/HCPCS: 87635

== ENCOUNTER 2019-11-10 15:35 | Observation (INO) | payer MEDICARE, MEDICAID, SELFPAY ==
[2019-11-09] VITALS (18 sets, daily range): BP systolic 86–146; BP diastolic 39–80; PULSE 61–83; RESP 10–20; TEMP 35.7–36.7; O2SAT 82–100; BMI 29.2
--- NOTE | 2019-11-09 | DI.RAD.S_ITS ---
PROCEDURE: XR LUMBAR SPINE 2-3V INDICATIONS: OR TECHNIQUE: 2 views of the lumbar spine were acquired. COMPARISON: [facility], , L-SPINE 2-3 VIEWS, 03/07/2017, 18:34. FINDINGS: Spot fluoroscopic intraoperative images demonstrating posterior paraspinal juan f and pedicle screw fixation and interbody cage grafts , probably L4-L5 and L5-S1 although recommend correlation to real-time observations Dictated by: Justino Valente M.D. on 11/09/2019 at 17:08 Approved by: Justino Valente M.D. on 11/09/2019 at 17:11
--- NOTE | 2019-11-09 07:25 | PM.PREOP ---
Pre-operative Note COVID-19 COVID-19 status: Negative Result date/Date tested (Pos, Neg/Pending): 11/06/19 Interval Note History & Physical reviewed/Exam performed by Physician: Yes Changes to H&P: Yes H&P completed within 30 days and has changed as indicated here:: Right leg better, has been L leg pain recently
[2019-11-09] MEDS: CEFAZOLIN 2 GM/100 ML FROZ.PIGGY IV ×3 (07:43→23:53)
--- NOTE | 2019-11-09 07:48 | P.OP_ITS ---
Operative Date/Time/Diagnoses Date of procedure: 11/09/19 Time of procedure: 11:02 Pre-op diagnosis: Lumbar stenosis with radiculopathy Lumbar spondylolisthesis History of laminectomy Post-op diagnosis: same Procedure & Clinicians Procedure: L4-5, L5-S1 TLIF (posterior/posterior body fusion) with cages L4, L5, S1 screws Iliac crest bone graft aspirate L4-5 laminectomy L5-S1 revision laminectomy Use of microscope Placement of epidural catheter Same procedure as scheduled: Yes Indications: [age] year old female with intractable pain from stenosis. They had failed conservative management and requested operative intervention. Risks and benefits of surgery were discussed and appropriate consents were obtained. Surgeon: Adán Guerin Literacy Specialist: Ana Polanco Anesthesia Type: General Operative Notes Findings: None Closure Type: primary Specimen(s): none sent Prosthetic devices, grafts, tissues, transplants, or devices: NuVasive MAS Reline screws Globus Rise cage Applied: catheter Estimated Blood Loss (mL): 20 Procedure in detail: The patient was brought to the operating room and intubated on the table. A time-out was performed. They were then rolled over to the well- padded Stefan table in the prone position. Preoperative antibiotics were given. The back was prepped and draped in the standard sterile fashion. Using fluoroscopy, a 4 cm longitudinal incision was made to the well-marked left of the midline. We used Bovie to come down to and split the lumbodorsal fascia. Using fluoroscopy and monitoring, we then percutaneously placed Jamshidi needles down the pedicles of L4, L5, and S1 on the left side. These were changed out to guidewires and then we tapped and then placed the NuVasive MAS Reline screw shanks. We then opened up the retractors and used Bovie to clear up the posterolateral gutter as well as medially along the lamina to the spinous processes. A bur was used to decorticate the transverse process of L5 and the sacral ala. We brought in the microscope. Using a combination of bur and Kerrison rongeurs, a revision laminectomy at L5-S1 was performed from the left side. We could go to the midline but not past that because of the scar. We cleared out the neural foramen with a facetectomy. In the end the ball probe could be swept to the midline and out the neural foramen and everything was open. We then had to work on mobilizing the dura medially to expose the disc and this had some adhesions that had to be carefully worked up. This revision laminectomy was separate and distinct from a TLIF approach is we had to work through scar tissue which r equired much more careful dissection and for the decompression. We then began the TLIF prep. We carefully cleaned up the remainder of the foramen until we could easily retract the exiting root as well as clearing medially below the dura and expose the disc space. There was some scar dissection the took time to slowly release the dura off the disc. The disc was prepped with bipolar and then an annulotomy was performed. We performed a diskectomy using a combination of paddles, keron, pituitaries, and curettes. We distracted the disc using a paddle and locked the retractor in an open position. We then filled the disc space with Osteocel bone graft. We then placed the globus Rise cage under fluoroscopy and then filled this in with more bone graft. The distraction on the retractor was released to compress down. This completed the posterior interbody fusion portion of the TLIF at L5-S1. We then moved up to the L4-5 level and opened up the retractors. We exposed the gutter and decorticated the L4 transverse process. We cleared medially. We then used the bur and Kerrison to perform a laminectomy at L4-5. We swept across the midline and decorticated the opposite side. We cleared out the neural foramen and checked with a ball probe to make sure everything was open. We then swept the dura medially and prep the disc for the TLIF. A scalpel was used to perform an annulotomy. We then used paddles and Keron and pituitaries to perform a complete diskectomy. We placed bone graft into the disc space and then placed another globus Rise cage and expanded under fluoroscopy and then packed with more bone graft. This completed the posterior interbody fusion portion of the TLIF at L4-5. The wound was irrigated. An epidural catheter was then prepped with 4 mL of 0.5% Marcaine, 1 mg Stadol, 4 mg Duramorph, and 100 mcg of fentanyl and placed in the spinal canal by carefully depressing the dura and advancing it 6 cm cephalad under the remaining lamina without resistance. We then placed the screw heads, juan f, and locked down the set screws. The wound was copiously irrigated. A small stab incision was made over the PSIS. We used a Jamshidi needle to aspirate several mL of bone marrow from the pelvis. This was mixed with the remaining Osteocel and combined with all of the locally harvested bone graft and placed in the posterolateral gutter for the posterior fusion of the TLIF at L4-5 and L5-S1. The muscle fascia was closed. The epidural catheter was then injected without resistance and the catheter was pulled. We then went to the opposite side. Again using fluoroscopy, a 4 cm incision was made and Bovie was used to come down to split the fascia. Using neural monitoring and fluoroscopy, Jamshidi needles were advanced down the pedicles of L4, L5, and S1 on the right side. These were switched over guidewires, tapped, and screws placed. We then placed a juan f and locked the set screws on this side. The wound was irrigated. The fascia was closed. Vancomycin powder was placed in the wounds. The superficial and skin were closed. A sterile dressing was placed. The patient was then rolled over extubated and brought to recovery room without complications. Complications: none Post-operative Condition: stable Disposition: PACU Plan for aftercare: Inpatient. Up with therapy.
--- NOTE | 2019-11-09 08:36 | SUR.OPER ---
Prone on spine table, head in foam head support, padded chest and pelvic supports, gel pad at knees, lower legs supported by pillows; nipples, genitalia and toes free of pressure, arms secured on foam padded arm boards at <90 degrees abduction. Tape over blanket at thigh secured to table.
[2019-11-09] MEDS: THROMBIN (RECOMBINANT) 5,000 UNIT VIAL 5000 UNIT TOP (08:49)
[2019-11-09] MEDS: VANCOMYCIN 1,000 MG VIAL 1000 MG TOP (08:49)
[2019-11-09] MEDS: SODIUM CHLORIDE 0.9% 1,000 ML, GENTAMICIN 80 MG IRR (08:50)
[2019-11-09] MEDS: BUPIVACAINE 0.5% (PF) 4 ML, MORPHINE-PF 4 MG, BUTORPHANOL 1 MG, fentaNYL 100 MCG INJ (08:51)
[2019-11-09] MEDS: ACETAMINOPHEN IV 1,000 MG/100 ML VIAL 400 MG IV (08:56)
[2019-11-09] MEDS: SCOPOLAMINE 1 PATCH TOP (08:59)
[2019-11-09] MEDS: LACTATED RINGERS 1,000 ML 42 ML IV (09:57)
--- NOTE | 2019-11-09 11:33 | SUR.PHASEI ---
Patient somnolent but arouses to voice. PAGAN's x 4. Denies pain.
[2019-11-09] MEDS: HYDROCODONE/ACET 5/325 TABLET 2 TAB PO ×3 (12:39→21:42)
[2019-11-09] MEDS: LACTATED RINGERS 1,000 ML 125 ML IV (12:40)
[2019-11-09] MEDS: HYDROMORPHONE 0.5 MG INJ IV ×2 (12:59→15:51)
[2019-11-09] MEDS: CELECOXIB 200 MG CAPSULE 400 MG PO (13:02)
--- NOTE | 2019-11-09 16:13 | PT-IP ANOTE ---
Received PT orders and reviewed chart. Pt is known to this PT from prior admission on 10/06/19 with bilateral TKA. Contacted pt for evaluation, but she was too groggy to safely participate. Will follow up 11/10/19.
--- NOTE | 2019-11-09 20:54 | PC.NURSE ---
Patient oxygen sat of 78 to 82 @ 1 Liter while sleeping , RT and RN notified.
[2019-11-09] MEDS: CELECOXIB 200 MG CAPSULE PO (21:42)
[2019-11-09] MEDS: SENNOSIDES 8.6 MG TABLET 17.2 MG PO (21:42)
[2019-11-09] MEDS: DOCUSATE 100 MG CAPSULE PO (21:42)
[2019-11-09] MEDS: GABAPENTIN 300 MG CAPSULE PO (21:42)
[2019-11-10] MEDS: TRAZODONE 100 MG TABLET 200 MG PO (00:03)
[2019-11-10] MEDS: hydrOXYzine pamoate 25 MG CAPSULE PO ×2 (00:04→22:33)
[2019-11-10] MEDS: HYDROMORPHONE 0.5 MG INJ IV (00:55)
[2019-11-10 04:06] VITALS: BP 117/62; PULSE 80; RESP 19; TEMP 36; O2SAT 100
[2019-11-10 05:26] LABS: Hematocrit 27.4 % (36-46); Hemoglobin 9.2 g/dL (12.0-16.0)
[2019-11-10] MEDS: LEVOTHYROXINE 100 MCG TABLET 200 MCG PO (06:01)
[2019-11-10] MEDS: LEVOTHYROXINE 50 MCG TABLET PO (06:02)
--- NOTE | 2019-11-10 07:53 | PM.PNPO.1 ---
Subjective Subjective Date Patient Seen: 11/10/19 Time Patient Seen: 07:53 Interval history: doing well. pain 5/10 in back. legs good. Exam Vital Signs (past 8 hours): - 11/10/19 04:06 Temperature 96.8 F L Pulse Rate 80 Respiratory Rate 19 Blood Pressure 117/62 Pulse Oximetry 100 Oxygen Delivery Method Nasal Cannula Oxygen Flow Rate 2 Const Orientation: alert and oriented x3 Back/Spine/Pelvis Other: cdi, 5/5 motor BLE Objective Labs Result Diagrams: 11/10/19 05:02 Labs: Laboratory Results - last 24 hr 11/10/19 05:02 Hgb 9.2 L Hct 27.4 L Assessment & Plan Post-op Postoperative Procedures: Procedures Operation Date: 11/09/19 07:45 Actual Procedures Side Surgeon p L4-5 & L5-S1 redo laminectomy and instrumented fusion (TLIF) w/bone graft Adán Guerin MD she's doing very well. mobilize with PT today. anticipate DC tomorrow or Friday.
[2019-11-10 08:00] VITALS: BP 111/66; PULSE 72; RESP 16; TEMP 36.9; O2SAT 98
[2019-11-10 08:38] VITALS: O2SAT 94
[2019-11-10] MEDS: CELECOXIB 200 MG CAPSULE PO ×2 (09:14→20:29)
[2019-11-10] MEDS: DOCUSATE 100 MG CAPSULE PO (09:14)
[2019-11-10] MEDS: ASPIRIN EC 81 MG TABLET PO (09:14)
[2019-11-10] MEDS: MAGNESIUM HYDROXIDE 30 ML UDC PO (09:21)
[2019-11-10] MEDS: HYDROCODONE/ACET 5/325 TABLET 2 TAB PO ×4 (09:21→23:21)
--- NOTE | 2019-11-10 09:37 | PT.IIE ---
Current Diagnoses Spondylolisthesis, lumbar region (11/09/19) Spinal stenosis, lumbar region with neurogenic claudication (11/09/19) Other specified postprocedural states (11/09/19) Surgery Performed Operation Date: 11/09/19 07:45 Actual Procedures p L4-5 & L5-S1 redo laminectomy and instrumented fusion (TLIF) w/bone graft - Adán Guerin MD Surgical History (Last Updated 09/28/19 @ 14:28 by Natalie Dent RN) History of bilateral tubal ligation (Acute) History of reversal of tubal ligation (Acute) Hx of appendectomy (Acute) Hx of bilateral oophorectomy (Acute) Hx of breast augmentation (Acute) Hx of hernia repair (Acute) Hx of knee surgery (Acute) Hx of repair of right rotator cuff (Acute) Medical History (Last Updated 09/28/19 @ 14:28 by Natalie Dent RN) Anxiety (Acute) Arthritis (Acute) Chronic vertigo (Acute) Edema (Acute) Fibromyalgia (Acute) GERD (gastroesophageal reflux disease) (Acute) HLD (hyperlipidemia) (Acute) Hx of ectopic (Acute) Hypothyroid (Acute) Meniere's disease (Acute) Numbness (Acute) Osteoarthritis (Acute) Sleep apnea (Acute) TMJ (dislocation of temporomandibular joint) (Acute) Physical Therapy Inpatient Evaluation/Re-Eval M1 PT/OT-IP Prior Functional Status Start: 11/09/19 13:36 Freq: NEEDED Status: Active Protocol: Document 11/10/19 09:37 AB (Rec: 11/10/19 12:25 AB [id number]) Medical Review Prior Functional Status Medical History Reviewed Yes Communication able to make needs known Mobility and Gait pt stated that she is modified independent with all mobiltiies and ambulation using her hurrycane but occasionally ambulates without AD indoors Social History Household Members none Living Arrangements Apartment/Condo Number of Floors (Floors) One Floor Number of Stairs To Enter/Railing? 33 steps to enter with wide rails: usually uses R rail ascending Home Environment High Toilet,Walk in Shower Home Equipment Four Wheel Walker,Straight Cane,Bedside Commode Additional Social History Comment pt stated that her daughter plans to stay with her for 2 weeks to assist her and her ex -spouse will also assist her pt has an adjustable bed pt has a hurrycane M2 PT-IP Current Condition Start: 11/09/19 13:36 Freq: NEEDED Status: Active Protocol: Document 11/10/19 09:37 AB (Rec: 11/10/19 12:25 AB [id number]) Physical Therapy Current Condition Current Condition Evaluation Date 11/10/19 Treatment Diagnosis s/p L4-5 L5S1 TLIF/lami; difficulty in walking Onset Date 11/09/19 Precautions Lumbar Precautions Log Roll,No Twisting,Limit Bending,Lifting Restriction of 10 lbs,Gait Belt above Incisional Area M3 PT-IP Subjective Start: 11/09/19 13:36 Freq: NEEDED Status: Active Protocol: Document 11/10/19 09:37 AB (Rec: 11/10/19 12:25 AB [id number]) Subjective Physical Therapy Visit Type Type Initial Evaluation Visit Start Time 09:37 Visit Stop Time 10:24 Total Visit Minutes 47 Number of 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 FARM Visits 0 Physical Therapy Visit Comments Patient Comments pt is agreeable to do PT Therapy Pain Assessment Pain When Pain Assessed At Rest Pain Present Pain Present Pain Reported Location Lower Back Scale Used pain scale not stated Pain Management Techniques Apply Cold,Re-positioning, Timing of Activity with Medications M4 PT-IP Mobility and Gait Start: 11/09/19 13:36 Freq: NEEDED Status: Active Protocol: Document 11/10/19 09:37 AB (Rec: 11/10/19 12:25 AB [id number]) PT-Bed Mobility Assessment Rolling Type of Rolling Log Rolling Level of Assist Contact Guard Assistance Supine to Sit Supine to Sit Contact Guard Assistance PT-Transfer Assessment Sit to and From Stand Sit to and from Stand Minimal Assistance,1 Person Assistance,Use of Upper Extremities Equipment Transfer Assistive Device Gait Belt,Front Wheeled Walker Orthotic/Prosthetic Devices or Brace: No Transfers Transfer Destination Chair Transfer Technique ambulated using FWW Transfer Ability Level of Assist Minimal Assistance,1 Person Assistance,Use of Upper Extremities Comments Mobility Comments pt educated regarding back precautions and log roll bed mobility. pt completed supine to sit CGA and max cues for techniques. pt was able to sit on EOB SBA. completed sit to stand min A and cues and was able ambulate ~ 15 ft towards the chair using FWW min A and cues. educated pt regarding sit<> stand techniques and completed x 2 sets CGA to min A and cues. pt requires cues for all tasks and presents with decrease safety awareness affecting mobiltiy. Gait Assessment Gait Gait Assistance Required: Minimum Assistance,1 Person Assist Distance (Feet) 15 Able to Maintain Weight Bearing Status Yes During Gait Assistive Devices Assistive Device Gait Belt,Front Wheeled Walker Orthotic/Prosthetic Devices or Brace: No Gait Deviations General Gait Pattern Antalgic,Decreased Stride Length,Decreased Feet Clearance Factors Limiting Gait Function Factors Limiting Gait Function Decreased Activity Tolerance, Decreased Strength,Difficulty Following Directions,Limited Range of Motion,Pain,Poor Balance,Poor Safety Awareness PT-Balance Assessment Sitting Balance and Reactions Static Sitting Balance Ability Good Dynamic Sitting Balance Ability Good Standing Balance and Reactions Static Standing Balance Ability Fair Dynamic Standing Balance Ability Fair Device Used FWW M5 PT-IP Objective Assessments Start: 11/09/19 13:36 Freq: NEEDED Status: Active Protocol: Document 11/10/19 09:37 AB (Rec: 11/10/19 12:25 AB [id number]) Orientation Orientation/Cognition Level of Alertness Alert Orientation Name Language Function Ability No Deficits Noted Safety Awareness Decreased Safety Awareness Memory Description Short Term Impaired Gross Range of Motion Lower Extremity ROM Assessment Left Impaired Impairments B knee flexion tighness ~ 90 deg Strength Lower Extremity Strength Hip 4+/5 Knee 4-/5 Coordination Assessment Gross Coordination Gross Coordination WNL Muscle Tone Muscle Tone WNL Yes M6 PT-IP Treatment Start: 11/09/19 13:36 Freq: NEEDED Status: Active Protocol: Document 11/10/19 09:37 AB (Rec: 11/10/19 12:25 AB [id number]) Physical Therapy Treatment Education Education Provided Precautions,Weight Bearing Status,Post-Op Packet,Safety M7 PT-IP Assessment and Plan Start: 11/09/19 13:36 Freq: NEEDED Status: Active Protocol: Document 11/10/19 09:37 AB (Rec: 11/10/19 12:25 AB [id number]) PT Summary Assessment and Plan Potential Rehabilitation Potential Good Status of Condition at Evaluation Stable Summary Impairments Pain,ROM,Strength,Balance, Coordination,Sensation,Tone, Cognition,Bed Mobility, Transfers,Gait,Activity Tolerance Assessment Summary pt requiring min A with mobility and plans to go home with her daughter to assist her. stated that daughter will be arriving friday from [place] and stay with her for ~ 2 weeks. pt just has bilateral knee surgeries last month and stated that she was able to manage at home by herself. pt has cognitive issues affecting safety awareness and carryover of directions and precautions. will continue to assess progress. Goals Bed Mobility Goal Standby Assistance Transfer Goal Standby Assistance,Front Wheeled Walker,Four Wheeled Walker Gait Goal Standby Assistance,Four Wheel Walker Gait Distance 200 Other Goals up/down 33 stairs R rail ascending SBA improve ambulation using hurrycane SBA 200ft Days to Meet Goals 5 Frequency of Treatment Frequency Of Treatment Twice a Day Treatment Plan Physical Therapy Treatment Plan Bed Mobility Training,Transfer Training,Gait Training, Therapeutic Exercise,Balance Retraining,Post Op Education, Discharge Planning,Hot or Cold Pack,Neuromuscular Re-ed, Coordination Retraining,Manual Therapy Other Recommendations and Next Treatment ambulation Focus Recommendations To Nursing Amount of Assist Needed 1 Person Assist Discharge Recommendations PT Discharge Recommendations Home with Assistance,Home Health Equipment Needed for Home Before FWW if not safe with 4WW or Discharge SPC Transportation Needs at Discharge Private Vehicle
[2019-11-10 11:11] VITALS: BP 135/72; PULSE 90; RESP 16; TEMP 37; O2SAT 97
--- NOTE | 2019-11-10 13:25 | PT.IPTN ---
Current Diagnoses Spondylolisthesis, lumbar region (11/09/19) Spinal stenosis, lumbar region with neurogenic claudication (11/09/19) Other specified postprocedural states (11/09/19) Surgery Performed Operation Date: 11/09/19 07:45 Actual Procedures p L4-5 & L5-S1 redo laminectomy and instrumented fusion (TLIF) w/bone graft - Adán Guerin MD Physical Therapy Treatment Note M2 PT-IP Current Condition Start: 11/09/19 13:36 Freq: NEEDED Status: Active Protocol: Document 11/10/19 09:37 AB (Rec: 11/10/19 12:25 AB [id number]) Physical Therapy Current Condition Current Condition Evaluation Date 11/10/19 Treatment Diagnosis s/p L4-5 L5S1 TLIF/lami; difficulty in walking Onset Date 11/09/19 Precautions Lumbar Precautions Log Roll,No Twisting,Limit Bending,Lifting Restriction of 10 lbs,Gait Belt above Incisional Area M3 PT-IP Subjective Start: 11/09/19 13:36 Freq: NEEDED Status: Active Protocol: Document 11/10/19 13:25 AB (Rec: 11/10/19 15:40 AB [id number]) Subjective Physical Therapy Visit Type Type Treatment Note Visit Start Time 13:25 Visit Stop Time 14:09 Total Visit Minutes 44 Number of CHAIN BUILDER Visits 0 Therapy Pain Assessment Pain When Pain Assessed At Rest Pain Present Pain Present Pain Reported Location Lower Back Intensity 7 Scale Used Numeric (0 - 10) Pain Management Techniques Re-positioning,Timing of Activity with Medications M4 PT-IP Mobility and Gait Start: 11/09/19 13:36 Freq: NEEDED Status: Active Protocol: Document 11/10/19 13:25 AB (Rec: 11/10/19 15:40 AB [id number]) PT-Bed Mobility Assessment Supine to Sit Supine to Sit Standby Assistance Sit to Supine Sit to Supine Standby Assistance Scooting Scooting to Edge of Bed Standby Assistance PT-Transfer Assessment Sit to and From Stand Sit to and from Stand Contact Guard Assistance,1 Person Assistance Equipment Transfer Assistive Device Gait Belt,Front Wheeled Walker Orthotic/Prosthetic Devices or Brace: No Gait Assessment Gait Gait Assistance Required: Contact Guard Assist Distance (Feet) 250 Able to Maintain Weight Bearing Status Yes During Gait Assistive Devices Assistive Device Gait Belt,Front Wheeled Walker Orthotic/Prosthetic Devices or Brace: No Gait Deviations General Gait Pattern Antalgic,Decreased Stride Length,Decreased Feet Clearance Factors Limiting Gait Function Factors Limiting Gait Function Decreased Strength,Pain,Poor Balance,Poor Safety Awareness Comments Gait Comments pt completed supine to sit SBA and cues for techniques. pt can be impulsive and needs cues to slow down and reminders for back precautions and do log roll bed mobility. pt completed sit to stand CGA and cues for techniques. ambulated in room ~ 20 ft CGA. agreed to do stairs. completed ambulation in hallway using FWW CGA ~ 100 ft . completed up/down steps using L rail ascending and R rail descending CGA. completed x 2 reps. pt ambulated back to her room ~ 250 ft CGA and requested to go back to bed. completed sit to supine SBA and cues. positioned in bed. call light and table placed within reach . Stair Climbing Assessment Evaluation Level of Assist On Stairs Contact Guard Assistance,1 Person Assistance Devices Stair Climbing Assistive Devices Left Railing,Right Railing Technique/Endurance Stair Climbing Direction Ascend and Descend Stair Climbing Technique Step to Step Number of Steps Climbed 3 Stair Climbing Set # Repetitions (reps) 2 Comments Stair Climbing Comments refer to gait section for details M5 PT-IP Objective Assessments Start: 11/09/19 13:36 Freq: NEEDED Status: Active Protocol: Document 11/10/19 09:37 AB (Rec: 11/10/19 12:25 AB [id number]) Orientation Orientation/Cognition Level of Alertness Alert Orientation Name Language Function Ability No Deficits Noted Safety Awareness Decreased Safety Awareness Memory Description Short Term Impaired Gross Range of Motion Lower Extremity ROM Assessment Left Impaired Impairments B knee flexion tighness ~ 90 deg Strength Lower Extremity Strength Hip 4+/5 Knee 4-/5 Coordination Assessment Gross Coordination Gross Coordination WNL Muscle Tone Muscle Tone WNL Yes M6 PT-IP Treatment Start: 11/09/19 13:36 Freq: NEEDED Status: Active Protocol: Document 11/10/19 13:25 AB (Rec: 11/10/19 15:40 AB [id number]) Physical Therapy Treatment Education Education Provided Precautions,Safety M7 PT-IP Assessment and Plan Start: 11/09/19 13:36 Freq: NEEDED Status: Active Protocol: Document 11/10/19 13:25 AB (Rec: 11/10/19 15:40 AB [id number]) PT Summary Assessment and Plan Potential Rehabilitation Potential Good Summary Impairments Pain,ROM,Strength,Balance, Coordination,Sensation,Tone, Cognition,Bed Mobility, Transfers,Gait,Activity Tolerance Progress Towards Goals Progressing Toward Goals Assessment Summary pt requiring CGA with mobility but requires continued cues for precautions and techniques . pt plans to go home and her spouse and daughter will assist her at home. will continue to assess progress. will assess safety with use of 4WW or hurrycane next tx session. Goals Bed Mobility Goal Standby Assistance Transfer Goal Standby Assistance,Front Wheeled Walker,Four Wheeled Walker Gait Goal Standby Assistance,Four Wheel Walker Gait Distance 200 Other Goals up/down 33 stairs R rail ascending SBA improve ambulation using hurrycane SBA 200ft Days to Meet Goals 5 Frequency of Treatment Frequency Of Treatment Twice a Day Treatment Plan Physical Therapy Treatment Plan Bed Mobility Training,Transfer Training,Gait Training, Therapeutic Exercise,Balance Retraining,Post Op Education, Discharge Planning,Hot or Cold Pack,Neuromuscular Re-ed, Coordination Retraining,Manual Therapy Other Recommendations and Next Treatment ambulation using 4WW or Focus hurrycane , stair climbing and caregiver training if appropriate Recommendations To Nursing Amount of Assist Needed 1 Person Assist Discharge Recommendations PT Discharge Recommendations Home with Assistance,Home Health Equipment Needed for Home Before FWW if not safe with 4WW or Discharge SPC Transportation Needs at Discharge Private Vehicle
--- NOTE | 2019-11-10 14:00 | CM.DANOTE ---
DCP assessment:EMR reviewed: Patient is a 69 yr old female who was admitted after having spinal surgery preformed by Dr Guerin. CM/Rn met with patient at the bedside and explained role. Patient was alert and oriented at time of visit. patient currently lives in a second floor apartment with 33 stairs to get into her home. Patient just had bilateral TKA done 10/06/19. Patient is Independent at base line with all ADLs and drives. CM/Rn talked with patient about HH or SNF options and she refused both. Patient states that her Ex- and her get along great and he lives in the apartment below hers and he will be helping her with her recovery as well as her adult daughter will be staying with her for two to three weeks while she recovers. Patient currently has FWW, Cane, elevated toilet seat, bedside commode and grab rails in her apartment to help with her recovery. I: Medicare and Medicaid. Plan: D/C home with her daughter when she is medically stable. no D/C planning needs noted at this time. CM department will follow to assist with any new D/C planning needs that may arise prior to D/C. Mary Jacobo RN Discharge Planning/Care Management Advanced directive, confirm from FAMILY Start: 11/09/19 12:50 Freq: Q24H Status: Active Protocol: Document 11/09/19 12:50 [facility] (Rec: 11/09/19 12:56 [facility] [id number]) Co-Signed By Mei Santamaria RN 11/09/19 12:50 Advance Directive, confirm on record Time 12:53 Person contacted PATIENT Copy received No Document 11/10/19 12:50 EM (Rec: 11/10/19 12:51 EM [id number]) Advance Directive, confirm on record Time 12:53 Person contacted PATIENT Copy received No CM Discharge Assessment Start: 11/10/19 13:56 Freq: Status: Active Protocol: Document 11/10/19 13:57 HS (Rec: 11/10/19 13:59 HS [id number]) Discharge Planning Assessment Assigned [place] Tower Loader Mary Jacobo RN DPOA/Assigned Designee Name Edd Arevalo Contact Information [phone] Advance Directives? Yes History Provided By Patient,Medical Record Has Patient been admitted in last 30 Yes days? Comment Last inpatient stay was for Bilateral TKA's Prior Living Arrangements Apartment/Condo Comment Has 33 stairs going into the apartment. ex lives in the appartment below the patient . Household Members none Comment Daughter - plans on staying with her for two weeks to help with patients recovery Type of transporation used prior to Drives own vehicle admit Independent with ADL's Yes Is patient alert and oriented? Yes Caregiver for Another No DME Already Rented / Owned Bath Bench,Elevated Toilet Seat,FWW / Walker,Cane,Bedside Commode Barriers to Discharge No Discharge Plan Home Referrals Initiated None needed If patient plan is home with home health Yes : Has signed face to face form been completed? Whiteboard Updated in Patient Room with Yes name and ext. # of [place] Tower Loader Review Status In Process Next Review Type Continued Stay Review Pre-Anesthesia Assessment Start: 11/03/19 12:21 Freq: Status: Complete Protocol: Document 11/03/19 12:21 [facility] (Rec: 11/03/19 12:28 [facility] [id number]) Pre-Anesthesia Assessment PAC Comment Pt declined PAC phone assessment. She is s/p bilateral TKAs 10/06/19, states no changes to medical/ medication history and has no questions/concerns for upcoming surgery. Chart review only. Patient Information Reviewed Via Chart Review Diagnostic Results BMP/CMP,CBC Comment Outside labs scanned to record , COVID screen not identified Primary Care Provider Blanca Oliver Seen Specialist in Last 12 Months Yes Specialist Seen Orthopedist Primary Language Latvian Preferred Language Latvian Vet Tech Required No Height 162.56 cm Weight 79.379 kg Body Mass Index (BMI) 30.0 Hearing Ability Normal Visual Assist Glasses Dentition Type Teeth, Natural Present Barriers to Learning None Hx Anesthesia Reactions Yes: I wake up during surgeries Hx Family Anesthesia Reaction No Hx Malignant Hyperthermia No Hx Blood Transfusions No Anesthesia Review Requested No alcohol intake current alcohol intake frequency a few times a month Smoking Status Never smoker Substance Use Type marijuana Comment Per pt smokes a lot of marijuana. Prev advised not to smoke 24hrs prior Pain Present Pain Reported Musculoskeletal Symptoms Abnormal Gait,Back Pain, Difficulty Walking,Joint Pain, Numbness,Radiating Pain into Limb History of Falling (Recent or History of Yes ) Patient is completely paralyzed or No completely immobile Mental Status Oriented to own ability Is patient on oxygen? No Does patient have MURCIA/SOB No Hx Sleep Apnea Yes CPAP/BIPAP use prescribed not used Currently Taking a Beta Samantha No Can You Climb a Flight of Stairs Without Yes SOB Hx Chest Pain No Hx SOB No Hx Syncope or Dizziness Yes: Chronic vertigo Anti-Coagulant Therapy No Has a Patcher Wood Welder No Cardiac Testing No Hx Pacemaker/ICD No Pacemaker Rep Required? No Cardiac Clearance Received Not Applicable Diet Type At Home Ketogenic dysphagia No Gastrointestinal Symptoms Reflux Urinary Catheter Present No Hx Urinary Self Catheterization No Diabetes No Patient No Lactating No Hx Drug Resistant Organism No Presence of External or Internal Medical No Devices Have you had any close contact with Unknown someone diagnosed with COVID-19? Marital Status Lives With spouse,none Prior Living Arrangements Apartment/Condo Number of Floors (Floors) One Floor Support System Spouse Does the Patient Have Assistance After Yes Surgery Patient Discharge Plan Description Return Home Feels Safe in Current Environment Yes Been Physically Hurt or Threatened By a No Person in Current Environment Do you have thoughts of harming yourself None or others? Are you currently considering suicide? No Do you have a plan to hurt yourself or No Plan others? Do You Have Any Spiritual Beliefs That No May Affect Your HC Choices? Do You Have Any Cultural Practices That No May Affect Your HC Choices? Who Can We Speak to About Patient's Care Family, friends Identifying Code for Release of Patient Declines to issue Information Health Care Proxy/Next of Kin Felicia (daughter) Edd (Ex- ) Health Care Proxy Phone Number Felicia: [phone] [facility]: [phone] Emergency Contact Name Felicia (daughter) Edd (Ex- ) Emergency Contact Phone Number Felicia: [phone] [facility]: Advance Directives? Yes Power of Employment Representative No
--- NOTE | 2019-11-10 14:20 | OT.IP.EVAL ---
Current Diagnoses Spondylolisthesis, lumbar region (11/09/19) Spinal stenosis, lumbar region with neurogenic claudication (11/09/19) Other specified postprocedural states (11/09/19) Surgery Performed Operation Date: 11/09/19 07:45 Actual Procedures p L4-5 & L5-S1 redo laminectomy and instrumented fusion (TLIF) w/bone graft - Adán Guerin MD Past Medical History (Last Updated 09/28/19 @ 14:28 by Natalie Dent RN) Anxiety (Acute) Arthritis (Acute) Chronic vertigo (Acute) Edema (Acute) Fibromyalgia (Acute) GERD (gastroesophageal reflux disease) (Acute) HLD (hyperlipidemia) (Acute) Hx of ectopic (Acute) Hypothyroid (Acute) Meniere's disease (Acute) Numbness (Acute) Osteoarthritis (Acute) Sleep apnea (Acute) TMJ (dislocation of temporomandibular joint) (Acute) Surgical History (Last Updated 09/28/19 @ 14:28 by Natalie Dent RN) History of bilateral tubal ligation (Acute) History of reversal of tubal ligation (Acute) Hx of appendectomy (Acute) Hx of bilateral oophorectomy (Acute) Hx of breast augmentation (Acute) Hx of hernia repair (Acute) Hx of knee surgery (Acute) Hx of repair of right rotator cuff (Acute) Occupational Therapy Inpatient Evaluation/Re-Eval M1 PT/OT-IP Prior Functional Status Start: 11/10/19 14:32 Freq: NEEDED Status: Active Protocol: Document 11/10/19 12:00 [facility] (Rec: 11/10/19 15:55 [facility] [id number]) Medical Review Prior Functional Status Medical History Reviewed Yes Communication able to make needs known Mobility and Gait pt stated that she is modified independent with all mobilties and ambulation using her hurrycane but occasionally ambulates without AD indoors Activities of Daily Living and IADL's Pt states after BTKA able to do all her ADl and IADL needs on her own. Social History Household Members none Living Arrangements Apartment/Condo Number of Floors (Floors) One Floor Number of Stairs To Enter/Railing? 33 steps to enter with wide rails: usually uses R rail ascending Home Environment High Toilet,Walk in Shower Home Equipment Four Wheel Walker,Straight Cane,Bedside Commode Additional Social History Comment pt stated that her daughter plans to stay with her for 2 weeks to assist her and her ex -spouse will also assist her pt has an adjustable bed pt has a hurrycane M2 OT-IP Current Condition Start: 11/10/19 14:32 Freq: Status: Active Protocol: Document 11/10/19 12:00 [facility] (Rec: 11/10/19 15:55 [facility] [id number]) Occupational Therapy Current Condition Current Condition Evaluation Date 11/10/19 Treatment Diagnosis Lumbar stenosis s/p L4-5, L5- S1 TLIF Diagnosis Onset Date 11/09/19 Post Operative Precautions Lumbar Precautions Log Roll,No Twisting,Limit Bending,Lifting Restriction of 10 lbs,Gait Belt above Incisional Area M3 OT- IP Subjective and Pain Start: 11/10/19 14:32 Freq: Status: Active Protocol: Document 11/10/19 12:00 [facility] (Rec: 11/10/19 15:55 [facility] [id number]) OT- Subjective Occupational Therapy Visit Type Type Initial Evaluation Visit Start Time 14:02 Visit Stop Time 14:20 Total Visit Minutes 18 Occupational Therapy Visit Comments Patient Comments Pt just finished with PT, but agreed to get up for OT for OT eval. Patient/Caregiver Goals To go home. OT Pain Assessment Pain When Pain Assessed During Mobility Pain Present Pain Present Pain Reported Location Lower Back Intensity 6 Scale Used Numeric (0 - 10) M4 OT- IP ADL's Start: 11/10/19 14:32 Freq: Status: Active Protocol: Document 11/10/19 12:00 [facility] (Rec: 11/10/19 15:55 [facility] [id number]) OT [id number] Comments OT Self-Feeding Comments NOt at meal time. OT ADL-Grooming Comments OT Grooming Comments Pt states did earlier. OT ADL-Dressing General Eval Lower Body Dressing Ability Maximum Assistance Comments OT Dressing Comments Educated pt on use of LB dressing equipment for socks with sock aid and track repairer. OT ADL-Toileting Comments OT Toileting Comments Catheter still in place. Pt states will have a BSC placed next to the bed and to also wear pads. OT ADL-Bathing Comments OT Bathing Comments Pt states has a small walk in shower but states will be able to do it on her own, but forgetting that she is not able to bend over due to just having back surgery. M5 OT- IP IADL's Start: 11/10/19 14:32 Freq: Status: Active Protocol: Document 11/10/19 12:00 [facility] (Rec: 11/10/19 15:55 [facility] [id number]) OT-Instrumental Activities of Daily Living Home Safety Awareness Awareness of Need for Assistance at Home Decreased Awareness Ability to Problem Solve Emergency Unable to Problem Solve Situations Home Safety Comments Pt states feels confused due to pain medications and realizes will need assist at home. Initially pt states daughter to come Friday to stay with her and that ex- will be checking on her in the mean time if she goes home tomoorow. Recommended that her ex- stay with her if she ends up leaving before her daughter arrive in town to stay with her to assist. Medication Management Medication Management Comments Pt states daughter to assist as she realizes that she is not thinking well to be able to take her meds on her own. Money Management Money Management Comments Pt states daughter to assist. Meal Preparation Meal Preparation Caregiver Provides Assist Comparator Operator Comparator Operator Caregiver Provides Assist M6 OT- IP Functional Cognition Start: 11/10/19 14:32 Freq: Status: Active Protocol: Document 11/10/19 12:00 [facility] (Rec: 11/10/19 15:55 [facility] [id number]) Cognitive Factors Limiting Selfcare Function Cognitive Ability Level of Alertness Alert,Confusional State Patient Orientation Name,Place,Situation Attention Span Ability Capable of Focused Attention, Capable of Sustained Attention Ability to Follow Commands Able to Follow One Step Commands with Increased Time, Able to Follow One Step Commands with Repetition Memory Description Short Term Impaired Safety Awareness Decreased Recall of Precautions,Decreased Ability to Apply Precautions, Underestimates Need for Assistance Cognitive Comments Cognitive Assessment Comments Pt appears groggy and only able to recall no bending for her back precautions. However pt not remembering to incorporate back precautions as states would just bend over to wash her feet in the shower or put her socks on. At this time pt would benefit from assist at home mainly to remind her of her back precautions and assist as needed especially for dressing,showering, and IADl needs. OT- Vision and Hearing OT- Hearing Assessment OT- Hearing Assessment WFL M7 OT- IP Mobility and Balance Start: 11/10/19 14:32 Freq: Status: Active Protocol: Document 11/10/19 12:00 [facility] (Rec: 11/10/19 15:55 [facility] [id number]) OT- Bed Mobility Assessment Rolling Type of Rolling Roll to Right Supine to Sit Supine to Sit Assist Standby Assistance Sit to Supine Sit to Supine Assist Standby Assistance Scooting Scooting to Edge of Bed Standby Assistance OT-Transfer Assessment Sit to and From Stand Sit to and from Stand Standby Assistance Transfers Transfer Ability Standby Assistance Technique Transfer Destination Bed Transfer Technique Stand Step Pivot Devices Transfer Assistive Devices Gait Belt,Front Wheeled Walker Comments Mobility Comments VC for log rolling and able to grab the edge of the mattress and vc to move her legs and trunk at the same time and then able to get up on her own . SBA to stand to FWW and able to take a few side steps up to the head of the bed before getting back into bed. OT- Balance Assessment Sitting Balance and Reactions Static Sitting Balance Ability Normal Dynamic Sitting Balance Ability Good Standing Balance and Reactions Static Standing Balance Ability Fair M9 OT- IP Assessment and Plan Start: 11/10/19 14:32 Freq: Status: Active Protocol: Document 11/10/19 12:00 [facility] (Rec: 11/10/19 15:55 [facility] [id number]) OT Summary Assessment and Plan Potential Rehabilitation Potential Good Analytic Complexity at Evaluation Low Summary OT Impairments Functional Cognition, Functional Mobility,Dressing, Toileting,Bathing,Toilet Transfers,Shower Transfers Progress Towards Goals Progressing Toward Goals Assessment Summary Pt s/p L4-5, L5-S1 TLIF with main barriers are steps and decreased ability to recall and incorporate back precautions at this time. Pt states feels the medication makes her groggy. Therefore recommend pt has assist during waking hours. Pt's daughter to come in Friday and ex- able to stay with her if going home tomorrow. Goals Grooming Goal Independent Dressing Goal Independent Toileting Goal Independent Bathing Goal Independent Toilet Transfer Goal Independent Shower Transfer Goal Independent Patient/Caregiver Education Goal Demonstrate Post-Op Precautions,Caregiver Independent Assisting Patient Days to Meet Goals 3 Frequency of Treatment Frequency Of Treatment Once a Day Treatment Plan OT Treatment Plan ADL Training,Functional Cognition Training,Functional Mobility,Patient/Family Education,Discharge Planning Other Treatment Recommendations and Next shower and practice with LB Treatment Focus dressing equipment Discharge Recommendations OT Discharge Recommendations Home with Assistance Home Equipment Needs may need FWW pending safety of 4WW use here Transportation Needs at Discharge Private Vehicle
[2019-11-10 16:19] VITALS: BP 138/70; PULSE 81; RESP 16; TEMP 37.2; O2SAT 96
[2019-11-10 19:51] VITALS: BP 129/82; PULSE 84; RESP 16; TEMP 37.4; O2SAT 97
[2019-11-10] MEDS: GABAPENTIN 300 MG CAPSULE PO (20:29)
[2019-11-10] MEDS: SODIUM CHLORIDE 0.9% FLUSH 10 ML IV (20:29)
[2019-11-11] VITALS (8 sets, daily range): BP systolic 130–156; BP diastolic 57–89; PULSE 76–86; RESP 16–19; TEMP 35.9–37.3; O2SAT 95–99
[2019-11-11] MEDS: TRAZODONE 100 MG TABLET 200 MG PO ×2 (00:11→21:07)
[2019-11-11] MEDS: HYDROCODONE/ACET 5/325 TABLET 2 TAB PO ×5 (05:12→21:07)
[2019-11-11] MEDS: LEVOTHYROXINE 50 MCG TABLET PO (05:13)
[2019-11-11] MEDS: LEVOTHYROXINE 100 MCG TABLET 200 MCG PO (06:33)
--- NOTE | 2019-11-11 07:21 | PM.PNPO.1 ---
Subjective Subjective Date Patient Seen: 11/11/19 Time Patient Seen: 07:22 Interval history: Her epidural pain relief is worn off and she worked very hard with physical therapy yesterday. She is very sore about 8/10 across the back. She is also feeling cramping going down both legs worse on the left Exam Vital Signs (past 8 hours): - 11/11/19 00:00 11/11/19 05:23 Temperature 97.4 F L 96.6 F L Pulse Rate 84 77 Respiratory Rate 16 16 Blood Pressure 136/70 130/57 L Pulse Oximetry 96 96 Oxygen Delivery Method Room Air Oxygen Flow Rate 0 Const Orientation: alert and oriented x3 Back/Spine/Pelvis Other: CDI. 5/5 motor both lower extremities. Objective Labs Result Diagrams: 11/10/19 05:02 Assessment & Plan Post-op Postoperative Procedures: Procedures Operation Date: 11/09/19 07:45 Actual Procedures Side Surgeon p L4-5 & L5-S1 redo laminectomy and instrumented fusion (TLIF) w/bone graft Adán Guerin MD I am going to give her dose of IV steroids to see if this calms down the leg pain. Continue to mobilize with therapy. If she is doing well could possibly discharge home today, if not tomorrow.
[2019-11-11] MEDS: DEXAMETHASONE 10 MG/ML VIAL IV (07:53)
[2019-11-11] MEDS: CELECOXIB 200 MG CAPSULE PO ×2 (07:54→21:08)
[2019-11-11] MEDS: ASPIRIN EC 81 MG TABLET PO (07:54)
[2019-11-11] MEDS: DOCUSATE 100 MG CAPSULE PO ×2 (07:54→21:07)
[2019-11-11] MEDS: SODIUM CHLORIDE 0.9% FLUSH 10 ML IV ×2 (07:55→21:11)
--- NOTE | 2019-11-11 11:04 | OT.IP.TRT ---
Current Diagnoses Spondylolisthesis, lumbar region (11/09/19) Spinal stenosis, lumbar region with neurogenic claudication (11/09/19) Other specified postprocedural states (11/09/19) Surgery Performed Operation Date: 11/09/19 07:45 Actual Procedures p L4-5 & L5-S1 redo laminectomy and instrumented fusion (TLIF) w/bone graft - Adán Guerin MD Occupational Therapy Treatment Note M2 OT-IP Current Condition Start: 11/10/19 14:32 Freq: Status: Active Protocol: Document 11/10/19 12:00 [facility] (Rec: 11/10/19 15:55 [facility] [id number]) Occupational Therapy Current Condition Current Condition Evaluation Date 11/10/19 Treatment Diagnosis Lumbar stenosis s/p L4-5, L5- S1 TLIF Diagnosis Onset Date 11/09/19 Post Operative Precautions Lumbar Precautions Log Roll,No Twisting,Limit Bending,Lifting Restriction of 10 lbs,Gait Belt above Incisional Area M3 OT- IP Subjective and Pain Start: 11/10/19 14:32 Freq: Status: Active Protocol: Document 11/11/19 12:44 [facility] (Rec: 11/11/19 12:58 [facility] [id number]) OT- Subjective Occupational Therapy Visit Type Type Treatment Note Visit Start Time 10:20 Visit Stop Time 11:04 Total Visit Minutes 44 Occupational Therapy Visit Comments Patient Comments Pt wanting to shower. Patient/Caregiver Goals To go home. OT Pain Assessment Pain When Pain Assessed At Rest Pain Present Pain Present Pain Reported Location Lower Back Intensity 6 Scale Used Numeric (0 - 10) M4 OT- IP ADL's Start: 11/10/19 14:32 Freq: Status: Active Protocol: Document 11/11/19 12:44 [facility] (Rec: 11/11/19 12:58 [facility] [id number]) OT ADL-Dressing General Eval Lower Body Dressing Ability Standby Assistance Comments OT Dressing Comments Set-up and pt able to use LB dressing equipment issued for LB dressing needs with good safety and min vc for use and completeness. OT ADL-Toileting General Evaluation Toileting Ability Standby Assistance OT ADL-Bathing Bathing Type Bathing Type Shower General Evaluation Bathing Ability Minimal Assistance Devices Bathing Equipment Shower Chair with Arms Comments OT Bathing Comments MERVAT to assist to wash/dry her back. Pt states shower at home too small for shower chair but will have assist from daughter . M5 OT- IP IADL's Start: 11/10/19 14:32 Freq: Status: Active Protocol: Document 11/10/19 12:00 [facility] (Rec: 11/10/19 15:55 [facility] [id number]) OT-Instrumental Activities of Daily Living Home Safety Awareness Awareness of Need for Assistance at Home Decreased Awareness Ability to Problem Solve Emergency Unable to Problem Solve Situations Home Safety Comments Pt states feels confused due to pain medications and realizes will need assist at home. Initially pt states daughter to come Friday to stay with her and that ex- will be checking on her. Recommended that her ex- stay with her if leaving before her daughter arrive in town to stay with her to assist. Medication Management Medication Management Comments Pt states daughter to assist as she realizes that she is not thinking well to be able to take her meds on her own. Money Management Money Management Comments Pt states daughter to assist. Meal Preparation Meal Preparation Caregiver Provides Assist Glue Clamp Operator Glue Clamp Operator Caregiver Provides Assist M6 OT- IP Functional Cognition Start: 11/10/19 14:32 Freq: Status: Active Protocol: Document 11/11/19 12:44 [facility] (Rec: 11/11/19 12:58 [facility] [id number]) Cognitive Factors Limiting Selfcare Function Cognitive Ability Level of Alertness Alert Patient Orientation Name,Place,Situation Attention Span Ability Capable of Focused Attention, Capable of Sustained Attention Ability to Follow Commands Able to Follow One Step Commands with Increased Time, Able to Follow One Step Commands with Repetition Memory Description Short Term Impaired Safety Awareness Decreased Recall of Precautions,Decreased Ability to Apply Precautions, Underestimates Need for Assistance Cognitive Comments Cognitive Assessment Comments Pt still groggy but clearer today and still needing reminders or increased time to incorporate back precautions for mobility and ADl needs. M7 OT- IP Mobility and Balance Start: 11/10/19 14:32 Freq: Status: Active Protocol: Document 11/11/19 12:44 [facility] (Rec: 11/11/19 12:58 [facility] [id number]) OT- Bed Mobility Assessment Rolling Type of Rolling Roll to Right Supine to Sit Supine to Sit Assist Standby Assistance Sit to Supine Sit to Supine Assist Standby Assistance Scooting Scooting to Edge of Bed Standby Assistance OT-Transfer Assessment Sit to and From Stand Sit to and from Stand Standby Assistance Transfers Transfer Ability Standby Assistance Technique Transfer Destination Bed,Bedside Commode,Chair Devices Transfer Assistive Devices Gait Belt,Front Wheeled Walker Comments Mobility Comments SBA with FWW, cue to keep FWW with her as tend to want to walk away from it at times. OT- Balance Assessment Sitting Balance and Reactions Static Sitting Balance Ability Normal Dynamic Sitting Balance Ability Normal Standing Balance and Reactions Static Standing Balance Ability Good M9 OT- IP Assessment and Plan Start: 11/10/19 14:32 Freq: Status: Active Protocol: Document 11/11/19 12:44 [facility] (Rec: 11/11/19 12:58 [facility] [id number]) OT Summary Assessment and Plan Potential Rehabilitation Potential Good Analytic Complexity at Evaluation Low Summary OT Impairments Functional Cognition, Functional Mobility,Dressing, Toileting,Bathing,Toilet Transfers,Shower Transfers Progress Towards Goals Progressing Toward Goals Assessment Summary Pt issued electronic test technician, sock aid, and long handle shoe horn and able to practice LB dressing needs and shower . Pt still needing cues and reminders of back precautions for safety. Pt to have supportive family to assist her at home. Goals Grooming Goal Independent Dressing Goal Independent Toileting Goal Independent Bathing Goal Independent Toilet Transfer Goal Independent Shower Transfer Goal Independent Days to Meet Goals 1 Frequency of Treatment Frequency Of Treatment Once a Day Treatment Plan OT Treatment Plan ADL Training,Functional Cognition Training,Patient/ Family Education,Discharge Planning Discharge Recommendations OT Discharge Recommendations Home with Assistance Home Equipment Needs may need FWW pending safety of 4WW use here Transportation Needs at Discharge Private Vehicle
--- NOTE | 2019-11-11 11:05 | PT.IPTN ---
Current Diagnoses Spondylolisthesis, lumbar region (11/09/19) Spinal stenosis, lumbar region with neurogenic claudication (11/09/19) Other specified postprocedural states (11/09/19) Surgery Performed Operation Date: 11/09/19 07:45 Actual Procedures p L4-5 & L5-S1 redo laminectomy and instrumented fusion (TLIF) w/bone graft - Adán Guerin MD Physical Therapy Treatment Note M2 PT-IP Current Condition Start: 11/09/19 13:36 Freq: NEEDED Status: Active Protocol: Document 11/10/19 09:37 [facility] (Rec: 11/10/19 12:25 AB [id number]) Physical Therapy Current Condition Current Condition Evaluation Date 11/10/19 Treatment Diagnosis s/p L4-5 L5S1 TLIF/lami; difficulty in walking Onset Date 11/09/19 Precautions Lumbar Precautions Log Roll,No Twisting,Limit Bending,Lifting Restriction of 10 lbs,Gait Belt above Incisional Area M3 PT-IP Subjective Start: 11/09/19 13:36 Freq: NEEDED Status: Active Protocol: Document 11/11/19 11:05 [facility] (Rec: 11/11/19 12:40 AB [email or web address]) Subjective Physical Therapy Visit Type Type Treatment Note Visit Start Time 11:05 Visit Stop Time 11:30 Total Visit Minutes 25 Number of CERTIFIED PERSONAL FINANCE COUNSELOR Visits 0 Physical Therapy Visit Comments Patient Comments pt is agreeable to do PT Therapy Pain Assessment Pain When Pain Assessed At Rest Pain Present Pain Present Pain Reported Location Lower Back Intensity 6 Pain Management Techniques Distraction,Modification of Treatment,Re-positioning, Timing of Activity with Medications M4 PT-IP Mobility and Gait Start: 11/09/19 13:36 Freq: NEEDED Status: Active Protocol: Document 11/11/19 11:05 [facility] (Rec: 11/11/19 12:40 [facility] [id number]) PT-Transfer Assessment Sit to and From Stand Sit to and from Stand Standby Assistance,1 Person Assistance,Use of Upper Extremities Comments Mobility Comments completed sit to stand from chair SBA and ambulated using 4WW SBA ~ 300 ft. completed stair climbing. ambulated back to her room using 4WW SBA . agreed to stay up on chair. positioned on chair. call light and table placed within reach. Gait Assessment Gait Gait Assistance Required: Standby Assistance Distance (Feet) 300 Able to Maintain Weight Bearing Status Yes During Gait Assistive Devices Assistive Device Gait Belt,4 Wheeled Walker Orthotic/Prosthetic Devices or Brace: No Factors Limiting Gait Function Factors Limiting Gait Function Decreased Strength,Pain,Poor Balance,Poor Safety Awareness Stair Climbing Assessment Evaluation Level of Assist On Stairs Standby Assistance Devices Stair Climbing Assistive Devices Left Railing Technique/Endurance Stair Climbing Direction Ascend and Descend Stair Climbing Technique Step to Step Number of Steps Climbed 3 Stair Climbing Set # Repetitions (reps) 3 Comments Stair Climbing Comments completed up steps using L rail ; pt hold on to rail with B hands M5 PT-IP Objective Assessments Start: 11/09/19 13:36 Freq: NEEDED Status: Active Protocol: Document 11/10/19 09:37 [facility] (Rec: 11/10/19 12:25 AB [email or web address]) Orientation Orientation/Cognition Level of Alertness Alert Orientation Name Language Function Ability No Deficits Noted Safety Awareness Decreased Safety Awareness Memory Description Short Term Impaired Gross Range of Motion Lower Extremity ROM Assessment Left Impaired Impairments B knee flexion tighness ~ 90 deg Strength Lower Extremity Strength Hip 4+/5 Knee 4-/5 Coordination Assessment Gross Coordination Gross Coordination WNL Muscle Tone Muscle Tone WNL Yes M6 PT-IP Treatment Start: 11/09/19 13:36 Freq: NEEDED Status: Active Protocol: Document 11/11/19 11:05 [facility] (Rec: 11/11/19 12:40 AB [id number]) Physical Therapy Treatment Education Education Provided Precautions,Safety M7 PT-IP Assessment and Plan Start: 11/09/19 13:36 Freq: NEEDED Status: Active Protocol: Document 11/11/19 11:05 [facility] (Rec: 11/11/19 12:40 AB [email or web address]) PT Summary Assessment and Plan Potential Rehabilitation Potential Good Summary Impairments Pain,ROM,Strength,Balance, Coordination,Sensation,Tone, Cognition,Bed Mobility, Transfers,Gait,Activity Tolerance Progress Towards Goals Progressing Toward Goals Assessment Summary pt is progressing well with mobility. pt plans to go home and family to assist her. pt may go home when stable. Goals Bed Mobility Goal Standby Assistance Transfer Goal Standby Assistance,Front Wheeled Walker,Four Wheeled Walker Gait Goal Standby Assistance,Four Wheel Walker Gait Distance 200 Other Goals up/down 33 stairs R rail ascending SBA improve ambulation using hurrycane SBA 200ft Days to Meet Goals 5 Frequency of Treatment Frequency Of Treatment Twice a Day Treatment Plan Physical Therapy Treatment Plan Bed Mobility Training,Transfer Training,Gait Training, Therapeutic Exercise,Balance Retraining,Post Op Education, Discharge Planning,Hot or Cold Pack,Neuromuscular Re-ed, Coordination Retraining,Manual Therapy Other Recommendations and Next Treatment ambulation using 4WW or Focus hurrycane , stair climbing and caregiver training if appropriate Recommendations To Nursing Amount of Assist Needed 1 Person Assist Discharge Recommendations PT Discharge Recommendations Home with Assistance,Home Health Transportation Needs at Discharge Private Vehicle
--- NOTE | 2019-11-11 14:54 | CM.DPC ---
Addendum entered by Ayah Pedraza LPN 11/11/19 14:57: Dr. Guerin saw pt today, noted her pain level and has ordered steroid dose. DC home likely tomorrow if this provides appropriate level of relief for pt. Original Note: DCP: continued: case received, EMR reviewed and note plan for a d/c to home setting with family supportive care when stable for same. Admission status: remains: SDC: confirmed by [facility] PENNY Hernandez. PT and OT are seeing pt and are supportive of the home plan. Will follow prn. No d/c order yet for today.
[2019-11-11] MEDS: SENNOSIDES 8.6 MG TABLET 17.2 MG PO (21:06)
[2019-11-11] MEDS: GABAPENTIN 300 MG CAPSULE PO (21:07)
[2019-11-12] MEDS: HYDROCODONE/ACET 5/325 TABLET 2 TAB PO ×4 (00:51→12:59)
[2019-11-12 05:39] VITALS: BP 144/78; PULSE 82; RESP 19; TEMP 36.5; O2SAT 100
[2019-11-12] MEDS: LEVOTHYROXINE 50 MCG TABLET PO (05:43)
[2019-11-12] MEDS: LEVOTHYROXINE 100 MCG TABLET 200 MCG PO (05:43)
--- NOTE | 2019-11-12 07:14 | PM.PNPO.1 ---
Subjective Subjective Date Patient Seen: 11/12/19 Time Patient Seen: 07:14 Interval history: She is doing well. The sciatic pain in the leg is much better after the steroids. She has been feeling more tightness going up her back to her neck. Exam Vital Signs (past 8 hours): - 11/11/19 23:32 11/12/19 05:39 Temperature 98.1 F 97.7 F Pulse Rate 86 82 Respiratory Rate 19 19 Blood Pressure 156/87 H 144/78 H Pulse Oximetry 99 100 Oxygen Delivery Method Room Air Oxygen Flow Rate 0 Const Orientation: alert and oriented x3 Back/Spine/Pelvis Other: CDI. 5/5 motor both lower extremities Objective Labs Result Diagrams: 11/10/19 05:02 Assessment & Plan Post-op Postoperative Procedures: Procedures Operation Date: 11/09/19 07:45 Actual Procedures Side Surgeon p L4-5 & L5-S1 redo laminectomy and instrumented fusion (TLIF) w/bone graft Adán Guerin MD She is doing well. I think her neck pain will get better as she mobilizes and also when she goes home with and sleep in her own bed. The legs are doing well. She is independent with ambulation. Discharge home today.
--- NOTE | 2019-11-12 07:15 | P.DS_ITS ---
History of Present Illness History of Present Illness Date Patient Seen: 11/12/19 Time Patient Seen: 07:15 Chief complaint: 11/08 Narrative: 69-year-old female with back pain and radiation down the back of both legs. Also heaviness and weakness and numbness in the legs. She had bilateral knee replacements 6 weeks ago and is doing well from the knees. She has a h istory of a lumbar laminectomy many years ago. She has been through therapy and injections without relief. Discharge Providers Provider Date of admission: 11/09/19 06:04 Discharge Date: 11/12/19 Primary care physician: Blanca Oliver Consults: 11/03/19 12:29 Consult to Respiratory Therapy Evaluate & Treat Comment: INPT 11/08 - [facility], no CPAP Physician Instructions: Evaluate and treat 11/09/19 12:24 Consult to Occupational Therapy Evaluate & Treat Comment: Physician Instructions: Evaluate and treat Consult to Physical Therapy Evaluate & Treat Comment: Physician Instructions: Evaluate and Treat 11/09/19 12:49 Consult to Pastoral Services Routine Comment: PER PATIENT REQUEST Discharge provider: Adán Guerin MD Summary Hospital Course Discharge Diagnosis: Lumbar stenosis with radiculopathy Lumbar spondylolisthesis Hospital Course: She is brought to the operating room on 11/09/2019 where she underwent an L4-S1 laminectomy and instrumented fusion. She worked with physical therapy and began increasing her mobilization and by date of discharge was independent with ambulation. She had some recurrence of sciatic pain running down her left leg but this improved with a single dose of IV steroids.. Good pain control and ready to go by postoperative day 3. Status at Discharge Cognitive/behavioral status at discharge: oriented Functional status at discharge: uses cane/walker Overall status at discharge: patient is progressing back to baseline Exam Vital Signs (past 8 hours): - 11/11/19 23:32 11/12/19 05:39 Temperature 98.1 F 97.7 F Pulse Rate 86 82 Respiratory Rate 19 19 Blood Pressure 156/87 H 144/78 H Pulse Oximetry 99 100 Oxygen Delivery Method Room Air Oxygen Flow Rate 0 Const Orientation: alert and oriented x3 Back/Spine/Pelvis Other: CDI. 5/5 motor both lower extremities. Objective Labs Result Diagrams: 11/10/19 05:02 Discharge Assessment & Plan Assessment and Plan Assessment: Lumbar stenosis, now status post laminectomy and fusion L4 through S1 Plan of Treatment: Discharge home Discharge Plan Discharge Plan Patient Disposition: Home Discharge comment: f/u 1.5 wks Discharge orders & Medications Prescriptions: New celecoxib [Celebrex] 200 mg Capsule 200 mg PO BID PRN (Reason: pain) Qty: 60 RF: 0 docusate sodium [DOK] 100 mg Capsule 100 mg PO BID PRN (Reason: constipation) Qty: 30 RF: 0 hydrocodone-acetaminophen 5-325 mg Tablet 1 tab PO Q4HR PRN (Reason: Pain, Moderate (4-6)) Qty: 30 RF: 0 hydroxyzine pamoate 25 mg Capsule 25 mg PO Q4HR PRN (Reason: spasms) Qty: 20 RF: 0 Continued trazodone 100 MG tablet 200 mg PO HS Qty: 0 RF: 0 levothyroxine 200 MCG tablet 200 mcg PO QAM Qty: 0 RF: 0 omeprazole 20 MG capsule,delayed release(DR/EC) 20 mg PO QDAY PRN (Reason: GERD) Qty: 0 RF: 0 levothyroxine 50 mcg Capsule 50 mcg PO DAILY RF: 0 furosemide 20 mg Tablet 20 mg PO DAILY PRN (Reason: Edema) RF: 0 aspirin 81 mg Tablet,Delayed Release (Dr/Ec) 81 mg PO BID Qty: 60 RF: 0 Discontinued cyclobenzaprine 10 mg Tablet 20 mg PO BID PRN (Reason: Pain, muscle spasm) Qty: 40 RF: 0 docusate sodium [DOK] 100 mg Capsule 100 mg PO BID Qty: 60 RF: 0 hydroxyzine pamoate 25 mg Capsule 25 mg PO Q6-8H PRN (Reason: Spasms) Qty: 30 RF: 0 ibuprofen 400 mg Tablet 400 mg PO Q4HR Qty: 60 RF: 0 hydromorphone [Dilaudid] 2 mg tablet 2 mg PO Q4-6H PRN (Reason: pain) Qty: 60 RF: 0 Follow up/Referrals: Blanca Oliver [Primary Care Provider] - Adán Guerin MD [Physician] - Discharge Health Status Multidrug resistant organism: No MDRO Diet/Activity/Treatments Diet: Diet as Tolerated Activity: Limited bending, twisting, 10 lb maximum lifting Skin/Wound/Dressing Care Report to your healthcare provider any signs of infection, such as:: chills, fe ca, night sweats, increased pain, unusual drainage and unusual redness Dressing: May change dressing and shower on Friday. Replaced with clean dressing at that point. Visit Report/Discharge Packet Instructions: How to Prevent Falls, DI for Postoperative Pain, DI for Prescription Opioid Use, Stool Softeners, Trazodone, Hydroxyzine, Celecoxib, DI for Transforaminal Lumbar Interbody Fusion, Hydrocodone/Acetaminophen (By mouth) Stand Alone Forms: Surgery Discharge Discharge Data Primary Care Provider: Blnaca Oliver
[2019-11-12 07:44] VITALS: BP 127/61; PULSE 76; RESP 16; TEMP 36.8; O2SAT 97
[2019-11-12] MEDS: DOCUSATE 100 MG CAPSULE PO (09:10)
[2019-11-12] MEDS: ASPIRIN EC 81 MG TABLET PO (09:10)
[2019-11-12] MEDS: CELECOXIB 200 MG CAPSULE PO (09:11)
[2019-11-12] MEDS: SODIUM CHLORIDE 0.9% FLUSH 10 ML IV (09:11)
--- NOTE | 2019-11-12 09:15 | OT.IPNOTE ---
Pt going home today and has no further questions or needs for OT. Pt to have her daughter there to assist for all needs.
--- NOTE | 2019-11-12 11:51 | PT.IPTN ---
Current Diagnoses Spondylolisthesis, lumbar region (11/09/19) Spinal stenosis, lumbar region with neurogenic claudication (11/09/19) Other specified postprocedural states (11/09/19) Surgery Performed Operation Date: 11/09/19 07:45 Actual Procedures p L4-5 & L5-S1 redo laminectomy and instrumented fusion (TLIF) w/bone graft - Adán Guerin MD Physical Therapy Treatment Note M2 PT-IP Current Condition Start: 11/09/19 13:36 Freq: NEEDED Status: Active Protocol: Document 11/10/19 09:37 AB (Rec: 11/10/19 12:25 AB [id number]) Physical Therapy Current Condition Current Condition Evaluation Date 11/10/19 Treatment Diagnosis s/p L4-5 L5S1 TLIF/lami; difficulty in walking Onset Date 11/09/19 Precautions Lumbar Precautions Log Roll,No Twisting,Limit Bending,Lifting Restriction of 10 lbs,Gait Belt above Incisional Area M3 PT-IP Subjective Start: 11/09/19 13:36 Freq: NEEDED Status: Active Protocol: Document 11/12/19 11:51 AB (Rec: 11/12/19 13:01 AB [id number]) Subjective Physical Therapy Visit Type Type Treatment Note Visit Start Time 11:51 Visit Stop Time 12:17 Total Visit Minutes 26 Number of BUS AND TROLLEY DISPATCHER Visits 0 Physical Therapy Visit Comments Patient Comments pt is agreeable to do PT M4 PT-IP Mobility and Gait Start: 11/09/19 13:36 Freq: NEEDED Status: Active Protocol: Document 11/12/19 11:51 AB (Rec: 11/12/19 13:01 AB [id number]) PT-Bed Mobility Assessment Rolling Type of Rolling Log Rolling Level of Assist Standby Assistance Supine to Sit Supine to Sit Standby Assistance PT-Transfer Assessment Sit to and From Stand Sit to and from Stand Standby Assistance Equipment Transfer Assistive Device Gait Belt,4 Wheeled Walker Orthotic/Prosthetic Devices or Brace: No Transfers Transfer Destination Toilet Transfer Technique ambulated using 4WW Transfer Ability Level of Assist Standby Assistance,1 Person Assistance,Use of Upper Extremities Gait Assessment Gait Gait Assistance Required: Standby Assistance Distance (Feet) 300 Able to Maintain Weight Bearing Status Yes During Gait Assistive Devices Assistive Device Gait Belt,4 Wheeled Walker Orthotic/Prosthetic Devices or Brace: No Gait Deviations General Gait Pattern Ataxic Factors Limiting Gait Function Factors Limiting Gait Function Decreased Activity Tolerance, Decreased Strength,Limited Range of Motion,Pain,Poor Balance,Poor Safety Awareness Comments Gait Comments ambulated using 4WW SBA; also completed ambulation in room without AD ~ 10 ft SBA. Stair Climbing Assessment Evaluation Level of Assist On Stairs Standby Assistance Devices Stair Climbing Assistive Devices Left Railing Technique/Endurance Stair Climbing Direction Ascend and Descend Stair Climbing Technique Step to Step Number of Steps Climbed 3 Stair Climbing Set # Repetitions (reps) 2 M5 PT-IP Objective Assessments Start: 11/09/19 13:36 Freq: NEEDED Status: Active Protocol: Document 11/10/19 09:37 AB (Rec: 11/10/19 12:25 AB [id number]) Orientation Orientation/Cognition Level of Alertness Alert Orientation Name Language Function Ability No Deficits Noted Safety Awareness Decreased Safety Awareness Memory Description Short Term Impaired Gross Range of Motion Lower Extremity ROM Assessment Left Impaired Impairments B knee flexion tighness ~ 90 deg Strength Lower Extremity Strength Hip 4+/5 Knee 4-/5 Coordination Assessment Gross Coordination Gross Coordination WNL Muscle Tone Muscle Tone WNL Yes M6 PT-IP Treatment Start: 11/09/19 13:36 Freq: NEEDED Status: Active Protocol: Document 11/12/19 11:51 AB (Rec: 11/12/19 13:01 AB [id number]) Physical Therapy Treatment Education Education Provided Precautions,Safety M7 PT-IP Assessment and Plan Start: 11/09/19 13:36 Freq: NEEDED Status: Active Protocol: Document 11/12/19 11:51 AB (Rec: 11/12/19 13:01 AB [id number]) PT Summary Assessment and Plan Potential Rehabilitation Potential Good Summary Impairments Pain,ROM,Strength,Balance, Sensation,Cognition,Bed Mobility,Transfers,Gait, Activity Tolerance Progress Towards Goals Progressing Toward Goals Assessment Summary pt is progressing well with mobility and plans to go home today. family will assist pt at home. pt may go home when medically stable. Goals Bed Mobility Goal Independent Transfer Goal Independent,Four Wheeled Walker Gait Goal Independent,Four Wheel Walker Gait Distance 200 Other Goals up/down 33 stairs R rail ascending SBA improve ambulation using hurrycane SBA 200ft Days to Meet Goals 5 Frequency of Treatment Frequency Of Treatment Twice a Day Treatment Plan Physical Therapy Treatment Plan Bed Mobility Training,Transfer Training,Gait Training, Therapeutic Exercise,Balance Retraining,Post Op Education, Discharge Planning,Hot or Cold Pack,Neuromuscular Re-ed, Coordination Retraining,Manual Therapy Recommendations To Nursing Amount of Assist Needed 1 Person Assist Discharge Recommendations PT Discharge Recommendations Home with Assistance Transportation Needs at Discharge Private Vehicle
--- NOTE | 2019-11-12 16:18 | PC.NURSE ---
1615 Pt discharged per wheelchair with STUDIO OPERATIONS MANAGER accompanying. Discharge instructions given, IV removed - all belongings given to patient.
== END 2019-11-12 16:18 | disposition home or self-care (01) ==
LOC: AC 11-12 10:48 → OR 11-12 16:38 → AC 11-12 16:40
PROVIDERS: Admitting Provider Orthopaedic Surgery; PCP Family Medicine; Referring Provider Family Medicine; Visit Provider Orthopaedic Surgery
PROC: (CPT 22633; principal; 2019-11-09 07:45)
DX: M43.16 Spondylolisthesis, lumbar region (principal); M48.062 Spinal stenosis, lumbar region with neurogenic claudication; Z98.890 Other specified postprocedural states; M79.7 Fibromyalgia; G47.30 Sleep apnea, unspecified; G35 Multiple sclerosis; E03.9 Hypothyroidism, unspecified; E78.5 Hyperlipidemia, unspecified; F12.90 Cannabis use, unspecified, uncomplicated; Z11.59 Encounter for screening for other viral diseases
CPT/HCPCS: 22633; 22634; 63042; 22853 ×2; 20939; 22840 ×2; 36415; 72100; 76000; 85014; 85018; 87635; 94760; 94762; 97116; 97161; 97165; 97530; 97535; C1776; G0378; J0131; J0330; J0595; J0690; J1100; J1170; J2274; J2405; J2704; J3010